=== PATIENT | female | born 1970 | race Caucasian/White ===

== ENCOUNTER → 2017-12-12 17:26 | Outpatient (CLI) | payer OTHER, SELFPAY ==
--- NOTE | 2017-12-12 17:31 | RAD_ITS ---
STUDY: X-RAY CHEST REASON FOR EXAM: Female, 47 years old. Persistent cough. TECHNIQUE: PA and lateral chest. COMPARISON: None. FINDINGS: The lungs are clear and expanded. There is no demonstrated pleural abnormality. Normal size heart. Normal mediastinum and priyanka. Normal visualized pulmonary arteries. Normal visualized aortic arch and descending thoracic aorta. Normal visualized thoracic spine. Normal visualized ribs, clavicles, and shoulders. There is no demonstrated abnormality of the visualized soft tissue structures of the upper abdomen. RAD/Chest PA and Lateral IMPRESSION: Normal x-ray examination of the chest. Electronically Signed: Marcelo Chavez MD at 7:43 EST , Service support ,
== END ==
PROVIDERS: Family Provider Family Medicine; PCP Family Medicine; Visit Provider Family Medicine
DX: R05 Cough (principal); R06.00 Dyspnea, unspecified
CPT/HCPCS: 71046

== ENCOUNTER → 2018-05-31 07:55 | Outpatient (CLI) | payer OTHER, SELFPAY ==
[2018-05-31 12:48] LABS: Absolute Lymphocyte Count 2.03 X10^3/ul (0.83-4.51); Absolute Neutrophil Count 3.5 X10^3/uL (2.0-7.7); Basophil# 0.02 X10^3/uL; Basophil% 0.3 % (0-1); Eosinophil# 0.13 X10^3/uL; Eosinophils% 2.1 % (0-5); Hematocrit 41.6 % (37-47); Lymphocyte # 2.03 X10^3/ul (4.0); Lymphocyte % 33.3 % (19-41); Mean Corp Hgb Conc 31.3 g/gl (32-36); Mean Corpuscular Hgb 28.3 pg (27.0-32.0); Mean Corpuscular Volume 90.6 fL (81-99); Mean Platelet Vol. 10.8 fl (6.2-12.0); Monocyte# 0.44 X10^3/uL; Monocyte% 7.2 % (0-10); Neutrophil # 3.47 X10^3/uL (2.7-7.7); Neutrophil % 56.9 % (47-70); Platelet Count 250 K/mm3 (150-450); RBC Distribution Width CV 15.1 % (11.6-14.6); Red Blood Count 4.59 M/mm3 (4.2-5.4); White Blood Count 6.1 K/mm3 (4.4-11.0)
[2018-05-31 12:55] LABS: Vitamin D,25 Hydroxy 21.5 ng/mL (29.95-100.01)
[2018-05-31 12:57] LABS: AST(SGOT) 16 U/L (15-37); Alanine Aminotransfer ALT/SGPT 27 U/L (13-56); Albumin, Serum 3.8 g/dL (3.2-5.0); Alkaline Phosphatase 85 U/L (45-117); Anion Gap 9 (5-15); BUN 15 mg/dL (7-18); BUN/Creat Ratio 17.6 RATIO (10-20); Calcium,Total 8.5 mg/dL (8.5-10.1); Chloride 111 mmol/L (98-107); Cholesterol 175 mg/dL (200); Creatinine, Serum 0.85 mg/dL (0.55-1.02); EST Glomerular Filtration Rate 76 mL/min (>60); Est Glom Filt Rate - Afr Amer 91 mL/min (>60); Globulin 3.7 g/dL (2.2-4.2); Glucose 84 mg/dL (74-106); High Density Lipoprotein 41 mg/dL; Potassium 4.1 mmol/L (3.5-5.1); Protein, Total 7.5 g/dL (6.4-8.2); Sodium Level 143 mmol/L (136-145); T4 Free Direct 0.56 ng/dL (0.76-1.46); Thyroid Stim Hormone (TSH) 3.86 uIU/mL (0.358-3.74); Triglycerides 140 mg/dL; Very Low Density Lipoprotein 28 mg/dL (5-40)
[2018-05-31 12:59] LABS: POSITIVE COUNT NO; POSITIVE DIFFERENTIAL NO; POSITIVE MORPHOLOGY NO
== END ==
PROVIDERS: Family Provider Family Medicine; PCP Family Medicine; Visit Provider Family Medicine
DX: E03.9 Hypothyroidism, unspecified (principal); E78.5 Hyperlipidemia, unspecified; R53.83 Other fatigue; E87.6 Hypokalemia; E55.9 Vitamin D deficiency, unspecified
CPT/HCPCS: 36415; 80053; 80061; 82306; 84439; 84443; 84481; 85025

== ENCOUNTER → 2018-08-21 08:10 | Outpatient (CLI) | payer OTHER, SELFPAY ==
[2018-08-21 12:13] LABS: T3 Total - Triiodothyronine 2.43 ng/mL (0.6-1.81)
[2018-08-21 12:17] LABS: T4 Free Direct 0.69 ng/dL (0.76-1.46); Thyroid Stim Hormone (TSH) 1.19 uIU/mL (0.358-3.74)
== END ==
PROVIDERS: Family Provider Family Medicine; PCP Family Medicine; Visit Provider Family Medicine
DX: E03.9 Hypothyroidism, unspecified (principal); E55.9 Vitamin D deficiency, unspecified
CPT/HCPCS: 36415; 82306; 84439; 84443; 84480

== ENCOUNTER → 2019-01-29 10:48 | Outpatient (CLI) | payer OTHER, SELFPAY ==
[2019-01-29 12:54] LABS: T3 Total - Triiodothyronine 2.08 ng/mL (0.6-1.81); Vitamin D,25 Hydroxy 76.9 ng/mL (29.95-100.01)
[2019-01-29 12:55] LABS: T4 Free Direct 0.77 ng/dL (0.76-1.46); Thyroid Stim Hormone (TSH) 0.62 uIU/mL (0.358-3.74)
== END ==
PROVIDERS: Family Provider Family Medicine; PCP Family Medicine; Visit Provider Family Medicine
DX: E03.9 Hypothyroidism, unspecified (principal); E55.9 Vitamin D deficiency, unspecified
CPT/HCPCS: 36415; 82306; 84439; 84443; 84480

== ENCOUNTER → 2019-07-03 09:05 | Outpatient (CLI) | payer OTHER, SELFPAY ==
[2019-07-03 12:43] LABS: T3 Total - Triiodothyronine 2.26 ng/mL (0.6-1.81); Vitamin D,25 Hydroxy 42.1 ng/mL (29.95-100.01)
[2019-07-03 12:46] LABS: T4 Free Direct 0.62 ng/dL (0.76-1.46)
== END ==
LOC: LAB.FUTURE 07-04 15:51 → BFHLAB 12-06 13:54
PROVIDERS: Family Provider Family Medicine; PCP Family Medicine; Visit Provider Family Medicine
DX: E03.9 Hypothyroidism, unspecified (principal); E55.9 Vitamin D deficiency, unspecified
CPT/HCPCS: 36415; 82306; 84439; 84443; 84480

== ENCOUNTER → 2019-08-22 16:00 | Outpatient (CLI) | payer BC, SELFPAY ==
[2019-08-22 17:57] LABS: Free T3 3.4 pg/mL (2.18-3.98); Thyroid Stim Hormone (TSH) 3.12 uIU/mL (0.358-3.74)
== END ==
LOC: LAB.FUTURE 16:03 → BFHLAB 12-06 13:53
PROVIDERS: Family Provider Family Medicine; PCP Family Medicine; Visit Provider Family Medicine
DX: E03.9 Hypothyroidism, unspecified (principal); N39.0 Urinary tract infection, site not specified
CPT/HCPCS: 36415; 84439; 84443; 84481; 87086; 87088; 87186

== ENCOUNTER → 2019-11-12 12:45 | Outpatient (CLI) | payer BC, SELFPAY ==
[2019-11-12 12:51] LABS: Bacteria 0 SEEN /hpf (None Seen); Mucous, Urine 0 SEEN /hpf (<or=2+); Red Blood Cells-Urine 0 SEEN /hpf (0-5); Squamous Epithelial Cells - UA 0 SEEN /hpf (5-10); White Blood Cells 0 SEEN /hpf (0-5)
[2019-11-12 16:22] LABS: Color, Urine Yellow (Yellow); Glucose, Dipstick Normal (Normal); Ketone-Dipstick Negative (Negative); Leukocyte Esterase-Dipstick Negative /ul (Negative); Nitrite-Dipstick Negative (Negative); Occult Blood-Urine 10 /ul (Negative); Protein-Dipstick Negative (Negative); Specific Gravity, Urine 1.005 (1.002-1.030); Urine Bilirubin Dipstick Negative (Negative); Urine Clarity Clear (Clear); Urine Urobilinogen Normal (Normal)
== END ==
LOC: BFHLAB 12:46 → LABSPEC 12:47
PROVIDERS: Family Provider Family Medicine; PCP Family Medicine; Referring Provider Family Medicine; Visit Provider Family Medicine
DX: R31.9 Hematuria, unspecified (principal)
CPT/HCPCS: 81001; 87086; 87088

== ENCOUNTER 2020-01-02 07:20 | Day surgery (SDC) | payer BC, SELFPAY ==
--- NOTE | 2019-12-14 03:51 | HP_ITS ---
Intake Vital Signs 12/14/19 Height 5 ft 5.6 in 12/14/19 Weight: 193 lb 12/14/19 BMI 31.5 12/14/19 BP 116/73 12/14/19 Blood Pressure Location Rt brachial 12/14/19 Position Sitting 12/14/19 Respiration 18 12/14/19 Pulse 80 12/14/19 Pulse Source Monitor 12/14/19 Temp 97.9 F 12/14/19 Temp Source Oral 12/14/19 Pulse Oximetry (%) 100 12/14/19 Oxygen Delivery Method room air Intake Visit Reasons: abd pain, needs cscope Chief Complaint: abdominal pain/bloating Public Health Registrar Required: No Is patient in pain?: No Allergies No Known Allergies Allergy (Unverified 12/14/19 15:31) Medications alprazolam 0.5 mg tablet 0.5 mg PO TID PRN 12/14/19 [History Confirmed 12/14/19] cholecalciferol (vitamin D3) 1,250 mcg (50,000 unit) capsule 50,000 unit PO .[id number] cap 12/14/19 [History Confirmed 12/14/19] diltiazem HCl 180 mg capsule,extended release 24 hr 180 mg PO DAILY 12/14/19 [History Confirmed 12/14/19] multivitamin 1 cap PO DAILY 12/14/19 [History] sertraline 100 mg tablet 100 mg PO DAILY 12/14/19 [History Confirmed 12/14/19] thyroid (pork) 60 mg tablet 90 mg PO DAILY tab 12/14/19 [History Confirmed 12/14/19] [facility] Medical History (Updated 12/14/19 @ 15:23 by Airam Valenzuela) Abdominal pain (Acute) Acid reflux (Acute) Arthritis (Acute) Bloating (Acute) Constipation (Acute) Depression with anxiety (Acute) Diarrhea (Acute) Hemorrhoids (Acute) History of back problems (Acute) Thyroid disease (Acute) Hypertension (Chronic) Surgical History (Updated 12/14/19 @ 15:26 by Airam Valenzuela) History of laparoscopic cholecystectomy (Acute) History of tubal ligation (Acute) Family History (Updated 12/14/19 @ 15:29 by Airam Valenzuela) Grandmother Arthritis Colon cancer Grandmother CVA (cerebral vascular accident) Mother Arthritis Cancer Hypertension Father Hypertension Uncle CVA (cerebral vascular accident) Social History (Updated 12/14/19 @ 15:51 by Sheba Harmon MD) Smoking Status: Current every day smoker alcohol intake: never substance use type: does not use HPI HPI HPI: CLAU DONALD, is a 49 F who presents to the office today for HPI HPI Surgical H&P: Yes HPI: CLAU DONALD, is a 49 F who presents to the office today for constipation/bloating. Patient states she has had issues with constipation/diarrhea cycle her entire life. For the last couple weeks the constipation bloating has been worse. Patient did states she notices a bulge from her vagina did see her [employer]NA[employer] who stated that she did have a week and vaginal wall with some prolapse of the urethra as well as the rectum per patient her imaging was normal. Patient stated a couple weeks ago she may have had hemorrhoid she did use preparation cream for about a week and did go away unsure if this was actually in the rectal area or vaginal. Patient states she has bowel movements daily but is unsure if she completely empties recently her bowel movements have been harder. Patient was told by her PCP to start taking some MiraLAX she has not quite started yet. Patient's maternal grandmother was diagnosed with colon cancer in her 40s. Patient did have a previous colonoscopy in her 20s due to abdominal pain patient states she did have some polyps at that time but they were benign. Patient states she does eat a lot of salads and fruits and vegetables but unsure exactly how much fiber she gets daily. ROS General General: No weight change, appetite, fatigue, colon cancer, breast cancer or weakness HEENT HEENT: No difficulty swallowing, eye injury, eye surgery, swollen glands or hoarseness Endo Endocrine: Yes thyroid disease; no diabetes mellitus, thyroid cancer, Hair loss, heat intolerance or cold intolerance Skin Skin: No rash or changing moles Breast Breast: No left breast lump, right breast lump, nipple discharge, breast pain, abnormal mammogram, abnormal US or breast enlargement Musc Musculoskeletal: Yes back problems and arthritis; no rheumatoid arthritis, gout or joint pain Cardio Cardiovascular: Yes high blood pressure; no murmur, pacemaker, heart disease, atrial fibrillation, heart attack, heart stent, palpitations, shortness of breat with exertion or chest pain Psych Psychiatric: Yes depression and anxiety; no hearing voices Resp Respiratory: No shortness of breath, No sleep apnea, No cough, No COPD, No asthma, No emphysema, No wheezing Gastro Gastrointestinal: Yes abdominal pain, No nausea or vomiting, No diarrhea, Yes constipation, No blood in stool, Yes acid reflux, Yes hemorrhoids, No ulcers, No gallbladder problem, No black,tarry stools Joseph Hematologic: No blood thinners, No blood disorders, No bleeding, No anemia, No blood clots Neuro Neurologic: No system reviewed and no additional complaints, except as docu, No as per HPI, No abnormal walking, No abnormal hearing, No abnormal movements, No abnormal speech, No behavioral changes, No burning sensations, No confusion, No seizure-like activity, No unsteadiness, No dizziness, No localized weakness, No frequent falls, No headache(s), No lack of coordination, No loss of vision, No memory loss, No numbness, No other visual disturbances, No radiating pain, No restless legs, No sensory deficit, No fainting, No tingling, No tremor(s), No weakness, No other Exam Const General: cooperative, comfortable, no acute distress Chest Breast Palpation: No nipple discharge Resp Effort & Inspection: normal respiratory effort Cardio Rate: regular rate Heart Sounds: no murmurs GI Inspection: non-distended Palpation: soft, no guarding, nontender Other: SASHA: No obvious external hemorrhoids even with Valsalva, small internal hemorrhoids anteriorly, no gross blood or masses noted. Assessment & Plan Problems 1. Constipation K59.00 2. Bloating symptom R14.0 Plan Will have patient track her fiber intake, goal of 25 g of fiber daily instructed patient not to advance fiber too quickly depending what she normally gets. Did give her sheet of high-fiber foods. I have discussed the above with the patient. I have offered the patient colonoscopy for evaluation. I have explained the risks/benefits of the procedure and described the procedure. I have discussed the risks with the patient, including but not limited to: infection, bleeding, perforation of the GI tract requiring emergency surgery, inability to complete the procedure, injury to any internal organs, complications of anesthesia, etc. - the patient understands and agrees to proceed. I have answered all the patient's questions to the patient's satisfaction and the patient has no further questions. The patient has been given instructions for the colon cleansing preparation. One day of cleareduardo MiraLAX to collect split prep Sheba Harmon M.D. Pager: [phone] [facility] [address] [place] [address], [facility], [address] [place] [address] Office: [phone] Plan Detail Follow Up We will schedule colonoscopy patient prefers January 02 Coding Level of Care Code Off vis,new,level 3 Diagnoses Constipation K59.00 Bloating symptom R14.0 12/14/19 1551 <Electronically signed by Sheba Mera am, MD> Date _ Sheba Harmon MD I have examined the patient the following changes are noted: Patient states she her constipation resolved improved after getting low but more fiber has not quite made up to the 25 g daily as she is taking it slowly.
[2019-12-14 15:29] VITALS: BMI 31.5
[2020-01-02 07:36] VITALS: BP 131/83; PULSE 108; RESP 16; TEMP 36.3; O2SAT 100; BMI 31.6
[2020-01-02] MEDS: Lactated Ringers 1,000 ML 100 ML IV (07:51)
[2020-01-02 08:59] VITALS: BP 131/83; BP 99/60; PULSE 87; RESP 18; TEMP 36.7; O2SAT 97
--- NOTE | 2020-01-02 09:01 | OP.CCLET_ITS ---
01/02/2020 Huma Alves [address] [place] [address] Re : Colonoscopy procedure for Xiomara Smiley Dear Dr. Alves This procedure was performed on Thursday, January 02, 2020. My impressions and recommendations are as follows: Impressions : - Hemorrhoids found on perianal exam. - Diverticulosis in the sigmoid colon and in the descending colon. - Internal hemorrhoids. - The examination was otherwise normal. - No specimens collected. Recommendations : - Discharge patient to home. - High fiber diet. - Continue present medications. - Repeat colonoscopy in 10 years for screening purposes. My findings are described in the full procedure note, which is enclosed. If I can be of further assistance, please feel free to contact me at Doctor phone number(s): , Work: . Sincerely, MD Sheba Brown MD 01/02/2020 9:00:50 AM This report has been signed electronically.
--- NOTE | 2020-01-02 09:01 | OP.COLON_ITS ---
Patient Name: Xiomara Smiley Procedure Date: 01/02/2020 8:19 AM Date of : 1970 Age: 49 Procedure: Colonoscopy Indications: Constipation Providers: Sheba Harmon MD Referring MD: Huma Alves Medicines: Monitored Anesthesia Care Patient Profile: This is a 49 year old female. Last Colonoscopy: more than 10 years ago. Complications: No immediate complications. Procedure: Pre-Anesthesia Assessment: - Prior to the procedure, a History and Physical was performed, and patient medications and allergies were reviewed. The patient's tolerance of previous anesthesia was also reviewed. The risks and benefits of the procedure and the sedation options and risks were discussed with the patient. All questions were answered, and informed consent was obtained. Prior Anticoagulants: The patient has taken no previous anticoagulant or antiplatelet agents. After reviewing the risks and benefits, the patient was deemed in satisfactory condition to undergo the procedure. After I obtained informed consent, the scope was passed under direct vision. Throughout the procedure, the patient's blood pressure, pulse, and oxygen saturations were monitored continuously. The pediatric colonoscope was introduced through the anus and advanced to the cecum, identified by appendiceal orifice and ileocecal valve. The colonoscopy was performed without difficulty. The patient tolerated the procedure well. Scope In: 8:35:25 AM Scope Withdrawal Time 0 hours 8 minutes 37 seconds Scope Out: 8:52:07 AM Total Procedure Duration Time 0 hours 16 minutes 42 seconds Findings: Hemorrhoids were found on perianal exam. Many small-mouthed diverticula were found in the sigmoid colon and descending colon. Internal hemorrhoids were found. The hemorrhoids were Grade I (internal hemorrhoids that do not prolapse). The exam was otherwise without abnormality. Impression: - Hemorrhoids found on perianal exam. - Diverticulosis in the sigmoid colon and in the descending colon. - Internal hemorrhoids. - The examination was otherwise normal. - No specimens collected. Recommendation: - Discharge patient to home. - High fiber diet. - Continue present medications. - Repeat colonoscopy in 10 years for screening purposes. Procedure Code(s): --- Professional --- 03048, Colonoscopy, flexible; diagnostic, including collection of specimen(s) by brushing or washing, when performed (separate procedure) Diagnosis Code(s): --- Professional --- K64.0, First degree hemorrhoids K59.00, Constipation, unspecified K57.30, Diverticulosis of large intestine without perforation or abscess without bleeding CPT copyright 2017 [employer]. All rights reserved. The codes documented in this report are preliminary and upon gre instructor review may be revised to meet current compliance requirements. MD Sheba Brown MD 01/02/2020 9:00:50 AM This report has been signed electronically. Number of Addenda: 0 Note Initiated On: 01/02/2020 8:19 AM
[2020-01-02 09:05] VITALS: BP 102/63; BP 131/83; PULSE 85; RESP 17; O2SAT 98
[2020-01-02 09:10] VITALS: BP 106/79; BP 131/83; PULSE 81; RESP 18; O2SAT 100
[2020-01-02 09:16] VITALS: BP 112/71; BP 131/83; PULSE 76; RESP 17; TEMP 36.6; O2SAT 100
[2020-01-02 09:35] VITALS: BP 131/83
== END 2020-01-02 09:39 | disposition home or self-care (01) ==
LOC: EN 07:21 → AC 07:22
PROVIDERS: PCP Family Medicine; Referring Provider Family Medicine; Visit Provider Surgery
PROC: 0DJD8ZZ Inspection of Lower Intestinal Tract, Via Natural or Artificial Opening Endoscopic (ICD-10-PCS; CPT 45378; principal; 2020-01-02 08:25)
DX: K64.0 First degree hemorrhoids (principal); K57.30 Diverticulosis of large intestine without perforation or abscess without bleeding; Z80.0 Family history of malignant neoplasm of digestive organs; I10 Essential (primary) hypertension; K21.9 Gastro-esophageal reflux disease without esophagitis; F41.8 Other specified anxiety disorders; E06.9 Thyroiditis, unspecified; M19.90 Unspecified osteoarthritis, unspecified site; Z86.2 Personal history of diseases of the blood and blood-forming organs and certain disorders involving the immune mechanism; Z87.19 Personal history of other diseases of the digestive system; Z90.49 Acquired absence of other specified parts of digestive tract; Z79.899 Other long term (current) drug therapy; F17.200 Nicotine dependence, unspecified, uncomplicated
CPT/HCPCS: 45378; J7120; J2405

== ENCOUNTER 2020-04-29 15:22 | Emergency (ER) | payer BC, SELFPAY ==
[2020-04-29 15:23] VITALS: BP 144/77; PULSE 131; RESP 18; TEMP 36.3; O2SAT 99; BMI 33.3
[2020-04-29] MEDS: Ibuprofen 400 MG Tablet 800 MG PO (16:02)
--- NOTE | 2020-04-29 16:10 | RAD_ITS ---
STUDY: X-RAY - LEFT FEMUR REASON FOR STUDY: Female, 50 years old. Not specified TECHNIQUE: 2 view(s) of the femur. COMPARISON: None. FINDINGS: Normal visualized femur. Normal visualized soft tissue structure. RAD/Femur Min 2 Views IMPRESSION: Normal x-ray examination of the femur. Electronically Signed: Michele Isaacs, at 16:30 EDT Tel , Service support ,
--- NOTE | 2020-04-29 16:35 | ED.DCSUM_ITS ---
- ER Visit Summary Date of Service: 04/29/20 Chief Complaint: Left thigh pain History of Present Illness: The patient is a [address] Alicia. She reports that she was stepping on a ladder to get into the pool when the ladder fell and popped up and hit her in the left thigh. She has a sharp pain is 10 of 10 in severity at worst and 7-10 currently. Is worsened by walking walking relieved by rest. She denies any other injuries or complaints. Physical Examination: Vitals: Stable. Afebrile. General: Well-nourished and well-developed. Head: Normocephalic atraumatic. Neck: Supple, no lymphadenopathy. No JVD. Nontender. Cardiovascular: Regular rate and rhythm. No murmurs. Respiratory: No respiratory distress. Clear to auscultation bilaterally. Abdominal: Soft, nontender, nondistended, normal bowel sounds. No guarding, rebound, or peritoneal signs. Back: Nontender. Extremities: Moderate tenderness palpation to the anterior surface of her left thigh. Good range of motion of the hip and the knee without difficulty. She is neuro vas intact distal to this, no edema. Skin: Normal color, no rash. Neurologic: Alert and oriented ?3. Cranial nerves II through XII are intact. Normal strength and sensation. Psych: Normal affect. Test Results: Clinical Impression(s) from Imaging Studies Femur X-Ray 04/29/20 16:10 IMPRESSION: Normal x-ray examination of the femur. Electronically Signed: Michele Mariecruz, at 16:30 EDT Tel , Service support , Emergency Department Course and Treatment: Patient was treated with ibuprofen. She is resting comfortably. Treatment Plan: Patient be discharged with symptomatic care. Ice the area. Use Tylenol and/or ibuprofen as needed for pain. Follow-up with her primary care physician 1 week if not improving. Return to the emergency department for any worsening symptoms. Disposition: To home in improved and stable condition. Impression: 1. Contusion left thigh. This note was generated with [employer] software. It may contain incorrect words, spelling, and punctuation that were not noted in review of the chart prior to signing ED Disposition - Plan for ED Patient: Disposition: Home or Assisted Living Instructions: ED EXTREMITY CONTUSION Lower Referrals: Huma Alves DO [Primary Care Provider] - 1 Week if not improving
[2020-04-29 17:09] VITALS: BP 149/62; PULSE 78; RESP 16; O2SAT 95
== END 2020-04-29 17:10 | disposition home or self-care (01) ==
LOC: ED 15:57
PROVIDERS: Emergency Provider Emergency Medicine; PCP Family Medicine
DX: S70.12XA Contusion of left thigh, initial encounter (principal); W18.09XA Striking against other object with subsequent fall, initial encounter; Y93.11 Activity, swimming; Y92.89 Other specified places as the place of occurrence of the external cause; Y99.9 Unspecified external cause status; I10 Essential (primary) hypertension; F17.210 Nicotine dependence, cigarettes, uncomplicated
CPT/HCPCS: 73552; 99283

== ENCOUNTER → 2020-06-02 09:18 | Outpatient (CLI) | payer BC, SELFPAY ==
[2020-06-02 09:22] LABS: Mucous, Urine 0 SEEN /hpf (<or=2+); White Blood Cells 0 SEEN /hpf (0-5)
[2020-06-02 12:27] LABS: Color, Urine Yellow (Yellow); Glucose, Dipstick Normal (Normal); Ketone-Dipstick Negative (Negative); Leukocyte Esterase-Dipstick Negative /ul (Negative); Nitrite-Dipstick Negative (Negative); Occult Blood-Urine 10 /ul (Negative); Protein-Dipstick Negative (Negative); Urine Bilirubin Dipstick Negative (Negative); Urine Clarity Sl. Cloudy (Clear); Urine Urobilinogen Normal (Normal)
[2020-06-02 12:33] LABS: Bacteria 1+ /hpf (None Seen); Red Blood Cells-Urine 0-5 SEEN /hpf (0-5); Squamous Epithelial Cells - UA 0-5 SEEN /hpf (5-10)
[2020-06-02 12:34] LABS: AST(SGOT) 18 U/L (15-37); Alanine Aminotransfer ALT/SGPT 29 U/L (13-56); Albumin, Serum 3.9 g/dL (3.2-5.0); Alkaline Phosphatase 93 U/L (45-117); Anion Gap 6 (5-15); BUN 10 mg/dL (7-18); BUN/Creat Ratio 12.2 RATIO (10-20); Calcium,Total 8.7 mg/dL (8.5-10.1); Chloride 106 mmol/L (98-107); Cholesterol 185 mg/dL (200); Creatinine, Serum 0.82 mg/dL (0.55-1.02); EST Glomerular Filtration Rate 78 mL/min (>60); Est Glom Filt Rate - Afr Amer 95 mL/min (>60); Free T3 2.6 pg/mL (2.18-3.98); Globulin 3.8 g/dL (2.2-4.2); Glucose 87 mg/dL (74-106); High Density Lipoprotein 41 mg/dL; Protein, Total 7.7 g/dL (6.4-8.2); Sodium Level 136 mmol/L (136-145); T4 Free Direct 0.68 ng/dL (0.76-1.46); Thyroid Stim Hormone (TSH) 7.41 uIU/mL (0.358-3.74); Triglycerides 151 mg/dL; Very Low Density Lipoprotein 30 mg/dL (5-40)
== END ==
LOC: LAB.FUTURE 09:18 → BFHLAB 08-26 14:46
PROVIDERS: Family Provider Family Medicine; PCP Family Medicine; Visit Provider Family Medicine
DX: E03.9 Hypothyroidism, unspecified (principal); R31.9 Hematuria, unspecified; E78.5 Hyperlipidemia, unspecified; I10 Essential (primary) hypertension
CPT/HCPCS: 36415; 80053; 80061; 81001; 84439; 84443; 84481; 87086; 87088

== ENCOUNTER → 2020-08-29 15:41 | Outpatient (CLI) | payer BC, SELFPAY ==
[2020-08-29 18:11] LABS: Free T3 3.7 pg/mL (2.18-3.98); T4 Free Direct 0.82 ng/dL (0.76-1.46); Thyroid Stim Hormone (TSH) 0.57 uIU/mL (0.358-3.74)
== END ==
PROVIDERS: PCP Family Medicine; Visit Provider Family Medicine
DX: E03.9 Hypothyroidism, unspecified (principal)
CPT/HCPCS: 36415; 84439; 84443; 84481

== ENCOUNTER 2021-01-29 15:16 | Outpatient (RCR) | payer BC, SELFPAY ==
[2021-01-29] MEDS: COVID-19 VACC, MRNA(PFIZER)/PF 30 MCG/0.3 ML SYRINGE IM (13:10)
[2021-02-19] MEDS: COVID-19 VACC, MRNA(PFIZER)/PF 30 MCG/0.3 ML SYRINGE IM (12:45)
== END 2021-01-29 23:59 ==
LOC: IMMUN 15:16
PROVIDERS: PCP Family Medicine; Visit Provider Family Medicine
DX: Z23 Encounter for immunization (principal)
CPT/HCPCS: 0001A; 0002A; 91300

== ENCOUNTER → 2021-07-17 16:12 | Outpatient (CLI) | payer OTHER, SELFPAY | PROVIDERS: PCP Family Medicine; Visit Provider Family Medicine | DX: Z20.828 Contact with and (suspected) exposure to other viral communicable diseases (principal) | CPT/HCPCS: 87635; U0005; U0003 ==

== ENCOUNTER → 2021-09-08 | Outpatient (CLI) | payer OTHER, SELFPAY ==
[2021-09-12 21:12] LABS: HPV APTIMA, High Risk Negative (Negative)
== END | disposition home or self-care (01) ==
PROVIDERS: PCP Family Medicine; Referring Provider Obstetrics & Gynecology; Visit Provider Obstetrics & Gynecology
DX: Z01.419 Encounter for gynecological examination (general) (routine) without abnormal findings (principal)
CPT/HCPCS: 87624; 88175; G0145

== ENCOUNTER → 2022-03-29 | Outpatient (CLI) | payer OTHER, SELFPAY ==
--- NOTE | 2022-03-29 16:10 | BI_ITS ---
MAMMOGRAPHY - BILATERAL SCREENING REASON FOR EXAM: Female, 52 years old. Routine annual screening examination. PERTINENT HISTORY: Non-contributory. TECHNIQUE: Digital bilateral breast moose (3D mammographic acquisition) in the CC and MLO projections. 2-D mediolateral oblique (MLO) and craniocaudad (CC) views of both breasts were obtained. CAD: Full Field Digital Mammography with Computer Added Detection was performed. COMPARISON: Comparison is made with prior outside examination dated 12/22/2020. FINDINGS: Breast Composition: There are scattered areas of fibroglandular density. There are no dominant masses or suspicious calcifications. Stable benign-appearing bilateral axillary nodes. No other significant abnormalities are identified. There has been no significant change since the prior study. BI/SCRN MAMM (CAD)W/MOOSE BILAT IMPRESSION: Stable bilateral screening mammogram. Yearly follow-up mammogram recommended. (A) ASSESSMENT CATEGORY: BIRADS Category 2: Benign. A letter regarding these results will be sent to the patient by the facility within 30 days. Approximately 10% of breast cancers are not detected by mammography. A normal mammogram should not delay biopsy of a clinically suspicious abnormality. [id number] Electronically Signed: David Patton MD at 8:27 EDT ,
== END | disposition home or self-care (01) ==
LOC: OPBI 16:08
PROVIDERS: PCP Family Medicine; Visit Provider Family Medicine
DX: Z12.31 Encounter for screening mammogram for malignant neoplasm of breast (principal)
CPT/HCPCS: 77063; 77067

== ENCOUNTER → 2022-08-24 | Outpatient (CLI) | payer OTHER, SELFPAY | END | disposition home or self-care (01) | LOC: SL 11:26 | PROVIDERS: PCP Family Medicine; Referring Provider Family Medicine; Visit Provider Family Medicine | DX: G47.30 Sleep apnea, unspecified (principal); I10 Essential (primary) hypertension; R35.1 Nocturia | CPT/HCPCS: 95806 ==

== ENCOUNTER → 2022-09-30 | Outpatient (CLI) | payer OTHER, SELFPAY | END | disposition home or self-care (01) | LOC: SL 08:47 | PROVIDERS: PCP Family Medicine; Visit Provider Nurse Practitioner Acute Care | DX: Z46.89 Encounter for fitting and adjustment of other specified devices (principal) ==

== ENCOUNTER → 2022-10-14 | Outpatient (CLI) | payer OTHER, SELFPAY | END | disposition home or self-care (01) | LOC: SL 08:15 | PROVIDERS: PCP Family Medicine; Visit Provider Nurse Practitioner Acute Care | DX: Z00.00 Encounter for general adult medical examination without abnormal findings (principal) ==

== ENCOUNTER 2022-12-30 22:57 | Emergency (ER) | payer OTHER, SELFPAY ==
[2022-12-30 22:58] VITALS: BP 127/74; PULSE 106; RESP 16; TEMP 36.2; O2SAT 100; BMI 33.3
[2022-12-30 23:13] LABS: Mucous, Urine 0 SEEN /hpf (<or=2+)
[2022-12-30 23:28] LABS: Color, Urine Yellow (Yellow); Glucose, Dipstick Normal (Normal); Ketone-Dipstick 5 mg/dl (Negative); Leukocyte Esterase-Dipstick 500 /ul (Negative); Nitrite-Dipstick Positive (Negative); Occult Blood-Urine 250 /ul (Negative); Protein-Dipstick 100 mg/dl (Negative); Specific Gravity, Urine 1.025 (1.002-1.030); Urine Bilirubin Dipstick Negative (Negative); Urine Clarity Sl. Cloudy (Clear); Urine Urobilinogen 1 mg/dl (Normal)
[2022-12-31 00:02] LABS: Bacteria 1+ /hpf (None Seen); Red Blood Cells-Urine 50-100 SEEN /hpf (0-5); Squamous Epithelial Cells - UA 0-5 SEEN /hpf (5-10); White Blood Cells >100 SEEN /hpf (0-5)
[2022-12-31] MEDS: Phenazopyridine 95 MG Tablet 190 MG PO (01:01)
[2022-12-31] MEDS: Cephalexin 250 MG Capsule 500 MG PO (01:01)
--- NOTE | 2022-12-31 01:51 | EDS_ITS ---
HPI History of Present Illness Chief Complaint: Complaint Narrative Narrative: Patient is a 52-year-old female with past medical history of smoking and obstructive sleep apnea. She states she went to see her waist pleater today for her yearly exam and reportedly she has a mild bladder prolapse but otherwise normal. She states this evening she urinated and it was mildly painful/uncomfortable and when she wiped she noticed some blood. She states that she does not take blood thinner or have history of bleeding disorder. She reports that since that time she feels he has to urinate roughly every 5 minutes and with these new symptoms she is concern for underlying infection and comes in for evaluation [facility] Medical History Abdominal pain Acid reflux Arthritis Bloating Constipation Depression with anxiety Diarrhea Hemorrhoids History of back problems Hypertension Thyroid disease Uterine polyp Home Medications alprazolam 0.5 mg tablet (Xanax) 0.5 mg PO TID PRN anxiety 12/14/19 [History Last Taken 01/02/20] cholecalciferol (vitamin D3) 1,250 mcg (50,000 unit) capsule 50,000 unit PO .[id number] 12/14/19 [History Last Taken Unknown] omeprazole 40 mg capsule,delayed release 40 mg PO PRN PRN Indigestion 12/31/19 [History Last Taken 01/02/20] diltiazem HCl 180 mg capsule,extended release 24 hr 360 mg PO DAILY 09/08/22 [History Last Taken Unknown] fluoxetine 40 mg capsule (Prozac) 40 mg PO DAILY 09/08/22 [History Last Taken Unknown] thyroid (pork) 60 mg tablet ([place] Thyroid) 125 mg PO DAILY 09/08/22 [History Last Taken Unknown] topiramate 50 mg tablet (Topamax) 50 mg PO DAILY 12/23/22 [History Last Taken Unknown] cephalexin 500 mg capsule 500 mg PO TID 7 days #21 caps 12/31/22 [Rx Last Taken Unknown] phenazopyridine 200 mg tablet (Pyridium) 200 mg PO TID PRN pain 3 days #9 tabs 12/31/22 [Rx Last Taken Unknown] Allergy/AdvReac Type Severity Reaction Status Date / Time No Known Allergies Allergy Verified 12/30/22 10:56 Family History Grandmother Arthritis Colon cancer Grandmother CVA (cerebral vascular accident) Mother Arthritis Cancer Hypertension Father Hypertension Uncle CVA (cerebral vascular accident) Surgical History History of laparoscopic cholecystectomy History of tubal ligation Social History Smoking Status: Current every day smoker tobacco type: cigarettes alcohol intake: never substance use type: does not use caffeine: Yes what type of physical activity do you participate in: none seatbelt use: always do you feel safe at home: Yes additional social history: [employer] at [employer] Patient works at [employer] ED Constitutional Constitutional ED: Denies chills or fever(s) ENT ENT ED: Denies sore throat Cardiovascular Cardiovascular: Denies chest pain Respiratory/Chest Respiratory/Chest: Denies cough or dyspnea Gastrointestinal Gastrointestinal: Denies abdominal pain, diarrhea, nausea or vomiting Genitourinary Genitourinary ED: Reports dysuria, hematuria and urinary frequency Musculoskeletal Musculoskeletal: Denies back pain or myalgias Integumentary Denies rash Neurologic Neurologic: Denies headache(s) Hematologic/Lymphatic Hematologic/Lymphatic: Denies easy bleeding or easy bruising EXAM Physical Exam Const Vital Signs: 12/30/22 22:58 Temperature 97.2 F L Temperature Source Temporal Pulse Rate 106 H Respiratory Rate 16 Blood Pressure 127/74 H Blood Pressure Mean 91 Pulse Ox 100 Positive well nourished and well developed General Appearance ED: well developed Eyes PERRL and EOMs intact bilaterally General Eye ED: Negative for pale conjunctiva Neck supple Resp normal respiratory effort and clear to auscultation bilaterally Cardio regular rate and regular rhythm GI non-distended GI Narrative: Patient has mild pain on palpation in the suprapubic region without voluntary guarding or rigidity Auscultation: normoactive bowel sounds Palpation: soft Narrative: External genitalia is normal. There is no blood or discharge at the vaginal os Back/Spine no CVA tenderness Extremity normal to inspection Neuro oriented x3 and CN's II-XII intact bilaterally Sensorium / Orientation: alert Psych mental status grossly normal Skin no rashes or lesions noted MDM MDM MDM Narrative Medical decision making narrative: Patient presented to the ER with stable vitals and a soft nonsurgical abdomen. She reported sudden onset urinary frequency dysuria and hematuria. She had no flank pain however so my concern for kidney stone was low. Also with her being afebrile and having a soft nonsurgical abdomen I do not feel there is need for work-up other than a urinary test at this time. Urine does show white blood cells with bacteria and red cells consistent with her exam. She is not physical exam findings concerning for urosepsis however and therefore do not feel there is need for blood cultures but just a urine culture and symptomatic treatment. Plan of care was discussed with the patient she is agreeable to it and therefore we discharged at this time Lab Data Labs: Laboratory Results - last 24 hr 12/30/22 23:10 Urine RBC 50-100 SEEN Urine WBC >100 SEEN Ur Squamous Epith Cells 0-5 SEEN Urine Bacteria 1+ Urine Mucus 0 SEEN Discharge Plan Triage Chief Complaint: Complaint ED Provider: Higinio Guardado Dx/Rx/DC Orders Clinical Impression: Acute hemorrhagic cystitis Instructions: UTIs Women Prescriptions: New phenazopyridine [Pyridium] 200 mg tablet 200 mg PO TID PRN (Reason: pain) 3 Days Qty: 9 0RF cephalexin 500 mg capsule 500 mg PO TID 7 Days Qty: 21 0RF No Action alprazolam [Xanax] 0.5 mg tablet 0.5 mg PO TID PRN (Reason: anxiety) cholecalciferol (vitamin D3) 1,250 mcg (50,000 unit) capsule 50,000 unit PO .[id number] thyroid (pork) [[place] Thyroid] 60 mg tablet 125 mg PO DAILY diltiazem HCl 180 mg capsule,extended release 24hr 360 mg PO DAILY fluoxetine [Prozac] 40 mg capsule 40 mg PO DAILY topiramate [Topamax] 50 mg tablet 50 mg PO DAILY omeprazole 40 MG capsule,delayed release(DR/EC) 40 mg PO PRN PRN (Reason: Indigestion) Stand Alone Forms: ED Work / School Excuse Primary Care Provider: Huma Alves Referrals: Huma Alves DO [Primary Care Provider] - Activity Restrictions/Additional Instructions: Your work-up and exam indicate you have hemorrhagic cystitis which is an infection of the bladder causing bleeding. Take the antibiotic as directed to help resolve this and if you have any further concerns or worsening of symptoms please return for repeat evaluation Disposition Disposition: Home, Self Care Discharge Date/Time: 12/31/22 02:24
== END 2022-12-31 02:24 | disposition home or self-care (01) ==
PROVIDERS: Emergency Provider Emergency Medicine; PCP Family Medicine; Visit Provider Emergency Medicine
DX: N30.10 Interstitial cystitis (chronic) without hematuria (principal); I10 Essential (primary) hypertension; F17.210 Nicotine dependence, cigarettes, uncomplicated; G47.33 Obstructive sleep apnea (adult) (pediatric); N81.10 Cystocele, unspecified
CPT/HCPCS: 81001; 87086; 87088; 87186; 99283

== ENCOUNTER → 2023-01-12 | Outpatient (CLI) | payer OTHER, SELFPAY ==
[2023-01-12 12:26] LABS: Absolute Neutrophil Count 6.9 X10^3/uL (2.0-7.7); Basophil# 0.05 X10^3/uL; Basophil% 0.5 % (0-1); Eosinophil# 0.08 X10^3/uL; Eosinophils% 0.8 % (0-5); Hematocrit 39.8 % (37-47); Hemoglobin 12.3 g/dL (12.0-15.0); Lymphocyte % 19.8 % (19-41); Mean Corp Hgb Conc 30.9 g/dL (32-36); Mean Corpuscular Hgb 28.1 pg (27.0-32.0); Mean Corpuscular Volume 91.1 fL (81-99); Mean Platelet Vol. 10.1 fl (6.2-12.0); Monocyte# 0.64 X10^3/uL; Monocyte% 6.7 % (0-10); NRBC Flagged by Analyzer 0 % (0-5); Neutrophil # 6.86 X10^3/uL (2.7-7.7); Neutrophil % 71.6 % (47-70); Platelet Count 339 K/mm3 (150-450); RBC Distribution Width CV 14.8 % (11.6-14.6); RBC Distribution Width SD 49.7 fl (35.1-43.9); Red Blood Count 4.37 M/mm3 (4.2-5.4); White Blood Count 9.6 K/mm3 (4.4-11.0)
[2023-01-12 12:54] LABS: AST(SGOT) 12 U/L (15-37); Alanine Aminotransfer ALT/SGPT 24 U/L (13-56); Albumin, Serum 3.7 g/dL (3.2-5.0); Alkaline Phosphatase 105 U/L (45-117); Anion Gap 7 (5-15); BUN 11 mg/dL (7-18); Calcium,Total 8.5 mg/dL (8.5-10.1); Chloride 107 mmol/L (98-107); Cholesterol 159 mg/dL (200); Creatinine, Serum 0.92 mg/dL (0.55-1.02); EST Glomerular Filtration Rate 68 mL/min (>60); Est Glom Filt Rate - Afr Amer 82 mL/min (>60); Free T3 2.7 pg/mL (2.18-3.98); Globulin 3.8 g/dL (2.2-4.2); Glucose 102 mg/dL (74-106); High Density Lipoprotein 42 mg/dL; Potassium 4.3 mmol/L (3.5-5.1); Protein, Total 7.5 g/dL (6.4-8.2); Sodium Level 137 mmol/L (136-145); T4 Free Direct 1.18 ng/dL (0.76-1.46); Thyroid Stim Hormone (TSH) 0.84 uIU/mL (0.358-3.74); Triglycerides 111 mg/dL; Very Low Density Lipoprotein 22 mg/dL (5-40)
== END | disposition home or self-care (01) ==
LOC: BFHLAB 08:47
PROVIDERS: PCP Family Medicine; Visit Provider Family Medicine
DX: E03.9 Hypothyroidism, unspecified (principal); E78.5 Hyperlipidemia, unspecified; Z51.81 Encounter for therapeutic drug level monitoring
CPT/HCPCS: 80053; 80061; 84439; 84443; 84481; 85025

== ENCOUNTER → 2023-05-03 | Outpatient (CLI) | payer OTHER, SELFPAY ==
--- NOTE | 2023-05-03 09:51 | BI_ITS ---
MAMMOGRAPHY - BILATERAL SCREENING REASON FOR EXAM: Female, 53 years old. Routine annual screening examination. PERTINENT HISTORY: Non-contributory. TECHNIQUE: Digital bilateral breast moose (3D mammographic acquisition) in the CC and MLO projections. 2-D mediolateral oblique (MLO) and craniocaudad (CC) views of both breasts were obtained. CAD: Full Field Digital Mammography with Computer Added Detection was performed. COMPARISON: Mammogram from 03/29/2022, 12/22/2020. FINDINGS: Breast Composition: There are scattered areas of fibroglandular density. There are no dominant masses or suspicious calcifications. Stable small benign-appearing bilateral axillary lymph nodes. No other significant abnormalities are identified. There has been no significant change since the prior study. BI/SCRN MAMM (CAD)W/MOOSE BILAT IMPRESSION: Stable bilateral screening mammogram. Yearly follow-up mammogram recommended. (A) ASSESSMENT CATEGORY: BIRADS Category 2: Benign. A letter regarding these results will be sent to the patient by the facility within 30 days. Approximately 10% of breast cancers are not detected by mammography. A normal mammogram should not delay biopsy of a clinically suspicious abnormality. Electronically Signed: Sukh Hines DO at 15:46 EDT ,
== END | disposition home or self-care (01) ==
LOC: OPBI 09:50
PROVIDERS: PCP Family Medicine; Referring Provider Obstetrics & Gynecology; Visit Provider Obstetrics & Gynecology
DX: Z12.31 Encounter for screening mammogram for malignant neoplasm of breast (principal)
CPT/HCPCS: 77063; 77067

== ENCOUNTER → 2024-01-10 | Outpatient (CLI) | payer OTHER, SELFPAY ==
--- OUTSIDE RECORDS SUMMARY | 2024-01-10 08:25 | XMS RPT_ITS | CCD ---
Author Name Unknown Address [address] [place] [address] Organization [facility] Results Test Name Value Interpretation Reference Range Facil ity Progress note 12-22-2020 Note Date & Type Note Facility 12-22-2020 Note HNO ID: [id number] Author: Piper Granados) Laila Johnson Service: ? Author Type: Concrete Engineer Type: Progress Notes Filed: 12/22/2020 1:59 PM Note Text: Radiology Service Progress Note PATIENT NAME: Clau Smiley DATE OF SERVICE: December 22, 2020 TIME: 1:59 PM PATIENT IDENTITY VERIFICATION COMPLETED USING TWO (2) IDENTIFIERS: Name and Date of confirmed by patient verbally. FALL SCREENING: Has the patient had 2 falls in the last year or 1 fall with injury or currently using an Ambulatory Assistive Device (Walker, Cane, Wheelchair, Crutches, etc.)? No PATIENT GENDER DATA: Female. status: : No status: NO. PATIENT RELEVANT IMPLANT DATA REVIEWED: Not Applicable RADIOLOGY DEPARTMENT: Mammography PERIPHERAL IV DATA: Not applicable SIGNED BY: Laila Finch December 22, 2020 1:59 PM [facility] Summary Purpose Family History No Family History Records Found Advance Directives No Advanced Directives Records Found Additional Source Comments INFORMATION SOURCE (unrecogn ized section and content) FOR RECORDS PERTAINING TO PATIENTS WHO ARE OR HAVE BEEN ENROLLED IN A CHEMICAL DEPENDENCY/SUBSTANCEABUSE PROGRAM, SOME INFORMATION MAY BE OMITTED. This clinical summary was aggregated from multiple sources. Caution should be exercised in using it in the provision of clinical care. This summary normalizes information from multiple sources, and as a consequence, information in this document may materially change the coding, format and clinical context of patient data. In addition, data may be omitted in some cases. CLINICAL DECISIONS SHOULD BE BASED ON THE PRIMARY CLINICAL RECORDS. [facility]. provides no warranty or guarantee of the accuracy or completeness of information in this document.
[2024-01-10 12:20] LABS: Absolute Lymphocyte Count 2.33 X10^3/uL (0.83-4.51); Absolute Neutrophil Count 3.8 X10^3/uL (2.0-7.7); Basophil# 0.04 X10^3/uL; Basophil% 0.6 % (0-1); Eosinophil# 0.09 X10^3/uL; Eosinophils% 1.3 % (0-5); Hemoglobin 12.3 g/dL (12.0-15.0); Lymphocyte # 2.33 X10^3/ul (0.83-4.51); Lymphocyte % 34.6 % (19-41); Mean Corp Hgb Conc 30.8 g/dL (32-36); Mean Corpuscular Hgb 27.8 pg (27.0-32.0); Mean Corpuscular Volume 90.3 fL (81-99); Mean Platelet Vol. 10.1 fl (6.2-12.0); Monocyte# 0.51 X10^3/uL; Monocyte% 7.6 % (0-10); NRBC Flagged by Analyzer 0 % (0-5); Neutrophil # 3.76 X10^3/uL (2.7-7.7); Neutrophil % 55.8 % (47-70); Platelet Count 332 K/mm3 (150-450); RBC Distribution Width CV 14.7 % (11.6-14.6); Red Blood Count 4.43 M/mm3 (4.2-5.4); White Blood Count 6.7 K/mm3 (4.4-11.0)
[2024-01-10 12:58] LABS: ALB/GLOB Ratio 0.9 RATIO (0.9-2.4); AST(SGOT) 18 U/L (15-37); Alanine Aminotransfer ALT/SGPT 24 U/L (13-56); Albumin, Serum 3.7 g/dL (3.2-5.0); Alkaline Phosphatase 102 U/L (45-117); Anion Gap 5 (5-15); BUN 14 mg/dL (7-18); BUN/Creat Ratio 18.2 RATIO (10-20); Calcium,Total 8.8 mg/dL (8.5-10.1); Chloride 110 mmol/L (98-107); Cholesterol 157 mg/dL (200); Creatinine, Serum 0.77 mg/dL (0.55-1.02); EST Glomerular Filtration Rate 83 mL/min (>60); Est Glom Filt Rate - Afr Amer 101 mL/min (>60); Free T3 3.4 pg/mL (2.18-3.98); Globulin 3.9 g/dL (2.2-4.2); Glucose 95 mg/dL (74-106); High Density Lipoprotein 41 mg/dL; Protein, Total 7.6 g/dL (6.4-8.2); Sodium Level 139 mmol/L (136-145); T4 Free Direct 1.31 ng/dL (0.76-1.46); Thyroid Stim Hormone (TSH) 0.04 uIU/mL (0.358-3.74); Triglycerides 120 mg/dL; Very Low Density Lipoprotein 24 mg/dL (5-40)
== END | disposition home or self-care (01) ==
LOC: BFHLAB 08:04
PROVIDERS: PCP Family Medicine; Visit Provider Family Medicine
DX: Z00.00 Encounter for general adult medical examination without abnormal findings (principal); E03.9 Hypothyroidism, unspecified; E78.5 Hyperlipidemia, unspecified
CPT/HCPCS: 36415; 80053; 80061; 84439; 84443; 84481; 85025

== ENCOUNTER → 2024-04-12 | Outpatient (CLI) | payer OTHER, SELFPAY ==
[2024-04-12 16:27] LABS: Free T3 2.6 pg/mL (2.18-3.98); T4 Free Direct 1.14 ng/dL (0.76-1.46)
== END | disposition home or self-care (01) ==
LOC: LAB.FUTURE 11:26
PROVIDERS: PCP Family Medicine; Referring Provider Family Medicine; Visit Provider Family Medicine
DX: E03.9 Hypothyroidism, unspecified (principal)
CPT/HCPCS: 36415; 84439; 84443; 84481

== ENCOUNTER → 2024-05-09 | Outpatient (CLI) | payer OTHER, SELFPAY ==
--- NOTE | 2024-05-09 16:06 | BI_ITS ---
MAMMOGRAPHY - BILATERAL SCREENING REASON FOR EXAM: Female, 54 years old. Routine annual screening examination. PERTINENT HISTORY: Non-contributory. TECHNIQUE: Digital bilateral breast moose (3D mammographic acquisition) in the CC and MLO projections. 2-D mediolateral oblique (MLO) and craniocaudad (CC) views of both breasts were obtained. CAD: Full Field Digital Mammography with Computer Added Detection was performed. COMPARISON: Comparison is made with prior examination dated May 03, 2023 and March 29, 2022. FINDINGS: Breast Composition: The breasts are almost entirely fatty. There are no dominant masses or suspicious calcifications. Stable fat-containing bilateral axillary lymph nodes. No other significant abnormalities are identified. There has been no significant change since the prior study. BI/SCRN MAMM (CAD)W/MOOSE BILAT IMPRESSION: Stable bilateral screening mammogram. Yearly follow-up mammogram recommended. (A) ASSESSMENT CATEGORY: BIRADS Category 2: Benign. A letter regarding these results will be sent to the patient by the facility within 30 days. Approximately 10% of breast cancers are not detected by mammography. A normal mammogram should not delay biopsy of a clinically suspicious abnormality. [id number] Electronically Signed: David Patton MD at 7:59 EDT ,
== END | disposition home or self-care (01) ==
PROVIDERS: PCP Family Medicine; Referring Provider Obstetrics & Gynecology; Visit Provider Obstetrics & Gynecology
DX: Z12.31 Encounter for screening mammogram for malignant neoplasm of breast (principal)
CPT/HCPCS: 77063; 77067

== ENCOUNTER 2024-06-03 18:41 | Emergency (ER) | payer OTHER, SELFPAY ==
[2024-06-03 18:42] VITALS: BP 144/76; PULSE 118; RESP 16; TEMP 36.6; O2SAT 100; BMI 33.1
--- NOTE | 2024-06-03 19:03 | ED.VIS.FEGU ---
HPI HPI - Female History of Present Illness Chief Complaint: Complaint Detail of Chief Complaint: Dysuria and frequency and pelvic pressure Informant: patient Narrative Narrative: Patient presents to the emergency department with complaint of dysuria and frequency and pelvic pressure. She had similar symptoms 2 years ago and was treated with Pyridium and an antibiotic and symptoms resolved. Patient denies fevers chills or sweats. She denies back pain. [facility] Medical History Abdominal pain Acid reflux Arthritis Bloating Constipation Depression with anxiety Diarrhea Hemorrhoids History of back problems Hypertension Thyroid disease Uterine polyp Home Medications ?Medication ?Instructions ?Recorded ?Last Taken ?Type alprazolam 0.5 mg tablet (Xanax) 0.5 mg PO TID PRN anxiety 12/14/19 01/02/20 History cholecalciferol (vitamin D3) 1,250 50,000 unit PO .[id number] 12/14/19 Unknown History mcg (50,000 unit) capsule omeprazole 40 mg capsule,delayed 40 mg PO PRN PRN Indigestion 12/31/19 01/02/20 History release diltiazem HCl 180 mg 360 mg PO DAILY 09/08/22 Unknown History capsule,extended release 24 hr thyroid (pork) 60 mg tablet 125 mg PO DAILY 09/08/22 Unknown History (Chauvin Thyroid) cephalexin 500 mg capsule 500 mg PO TID 7 days #21 caps 12/31/22 Unknown Rx phenazopyridine 200 mg tablet 200 mg PO TID PRN pain 3 days #9 12/31/22 Unknown Rx (Pyridium) tabs sertraline 50 mg tablet (Zoloft) 50 mg PO DAILY 03/17/23 Unknown History phenazopyridine 200 mg tablet 200 mg PO BID PRN PRN Pain #10 tabs 06/03/24 Unknown Rx (Pyridium) sulfamethoxazole 800 1 tab PO BID #14 TABLETS 06/03/24 Unknown Rx mg-trimethoprim 160 mg tablet Allergy/AdvReac Type Severity Reaction Status Date / Time No Known Allergies Allergy Verified 06/03/24 18:42 Family History Grandmother Arthritis Colon cancer Grandmother CVA (cerebral vascular accident) Mother Arthritis Cancer Hypertension Father Hypertension Uncle CVA (cerebral vascular accident) Surgical History History of laparoscopic cholecystectomy History of tubal ligation Social History Smoking Status: Current every day smoker tobacco type: cigarettes alcohol intake: never substance use type: does not use caffeine: Yes what type of physical activity do you participate in: none seatbelt use: always do you feel safe at home: Yes additional social history: Dre- [employer]. at [employer] Patient works at [employer] ROS ROS ED Review of Systems ROS Unobtainable: other Constitutional Constitutional ED: Reports lethargy; Denies chills, fever(s), sweats or weight loss Eyes Eyes: Denies blurry vision, change in vision or diplopia ENT ENT ED: Denies rhinorrhea or sore throat Cardiovascular Cardiovascular: Denies chest pain, orthopnea or racing heartbeat Respiratory/Chest Respiratory/Chest: Denies cough, dyspnea, dyspnea on exertion, orthopnea or sputum Gastrointestinal Gastrointestinal: Reports abdominal pain; Denies diarrhea, nausea or vomiting Genitourinary Genitourinary ED: Reports dysuria and urinary frequency; Denies hematuria Musculoskeletal Musculoskeletal: Denies arthralgias, back pain, myalgias or neck pain Integumentary Denies abscess, Abrasions or rash Neurologic Neurologic: Denies headache(s) or weakness Psychiatric Psychiatric: Denies anxiety, depression or suicidal thoughts Endocrine Endocrinology: Denies polydipsia, polyphagia or polyuria Hematologic/Lymphatic Hematologic/Lymphatic: Denies easy bleeding, easy bruising or lymphadenopathy Allergic/Immunologic Allergic/Immunologic ED: Denies mouth swelling, tongue swelling or urticaria EXAM Physical Exam Const Vital Signs: 06/03/24 18:42 Temperature 97.8 F Temperature Source Temporal Pulse Rate 118 H Respiratory Rate 16 Blood Pressure 144/76 H Blood Pressure Mean 98 Pulse Ox 100 Oxygen Delivery Method Room Air Positive well nourished and well developed General Appearance ED: well developed and NAD HEENT Reports TM's clear and moist mucous membranes normocephalic and atraumatic; Negative for trauma or tenderness Tympanic Membrane ED: Yes TM's clear Eyes PERRL and EOMs intact bilaterally General Eye ED: Negative for pale conjunctiva or scleral icterus Neck no lymphadenopathy, supple and no JVD General: Negative for tenderness Chest Wall inspection of chest normal and palpation of chest normal Chest: Negative for tenderness Resp normal respiratory effort and clear to auscultation bilaterally Effort and Inspection: Negative for respiratory distress or pain with movement Auscultation: Negative for rhonchi, wheezes or diminished lung sounds Cardio regular rate, regular rhythm, S1 normal heart sound, S2 normal heart sound and no murmurs Peripheral Pulses: pulses 2+ throughout GI normal to inspection, nondistended, normoactive bowel sounds, soft to palpation, non-tender, non-distended and no masses Back/Spine no CVA tenderness and no thoracic nor lumbar tenderness Extremity normal to inspection General Extremety ED: Negative for edema General Extremity: Negative for edema Neuro oriented x3, CN's II-XII intact bilaterally, no sensory deficits noted and gait normal Sensorium / Orientation: awake, alert, oriented to person, oriented to place and oriented to time Motor Exam: strength 5/5 throughout and strength abnormal Psych mental status grossly normal Skin no rashes or lesions noted and no wounds MDM MDM MDM Narrative Medical decision making narrative: Patient presents with dysuria and frequency with symptoms consistent for UTI. She had prior ER prior similar symptoms 2 years ago. Patient had a urinalysis that was positive for UTI. I did send off urine culture. Patient was started on Bactrim and Pyridium. Patient will be discharged to home. Advised to return if severe pain, vomiting, severe back pain fever, or condition worsening way. Lab Data Attestation: I reviewed the patient's lab results. Discharge Plan Triage Chief Complaint: Complaint ED Provider: Marjorie Kelly Dx/Rx/DC Orders Clinical Impression: UTI (urinary tract infection) Instructions: ED UTIs Women Prescriptions: New phenazopyridine [Pyridium] 200 mg tablet 200 mg PO BID PRN PRN (Reason: Pain) Qty: 10 0RF sulfamethoxazole-trimethoprim 800-160 mg tablet 1 tab PO BID Qty: 14 0RF No Action alprazolam [Xanax] 0.5 mg tablet 0.5 mg PO TID PRN (Reason: anxiety) cholecalciferol (vitamin D3) 1,250 mcg (50,000 unit) capsule 50,000 unit PO .[id number] thyroid (pork) [Chauvin Thyroid] 60 mg tablet 125 mg PO DAILY diltiazem HCl 180 mg capsule,extended release 24hr 360 mg PO DAILY sertraline [Zoloft] 50 mg tablet 50 mg PO DAILY omeprazole 40 MG capsule,delayed release(DR/EC) 40 mg PO PRN PRN (Reason: Indigestion) phenazopyridine [Pyridium] 200 mg tablet 200 mg PO TID PRN (Reason: pain) 3 Days Qty: 9 0RF cephalexin 500 mg capsule 500 mg PO TID 7 Days Qty: 21 0RF Primary Care Provider: Huma Alves Referrals: Huma Alves DO [Primary Care Provider] - 3-5 Days Print Language: Chinese Disposition Disposition: Home, Self Care
[2024-06-03 19:16] LABS: Mucous, Urine 0 SEEN /hpf (<or=2+)
[2024-06-03 19:18] LABS: Color, Urine Yellow (Yellow); Glucose, Dipstick Normal (Normal); Ketone-Dipstick Negative (Negative); Leukocyte Esterase-Dipstick 500 /ul (Negative); Nitrite-Dipstick Negative (Negative); Occult Blood-Urine 250 /ul (Negative); Protein-Dipstick 30 mg/dl (Negative); Urine Bilirubin Dipstick Negative (Negative); Urine Clarity Cloudy (Clear); Urine Urobilinogen Normal (Normal)
[2024-06-03 19:58] LABS: Bacteria 1+ /hpf (None Seen); Red Blood Cells-Urine 25-50 SEEN /hpf (0-5); Squamous Epithelial Cells - UA 0-5 SEEN /hpf (5-10); White Blood Cells >100 SEEN /hpf (0-5)
[2024-06-03 20:07] VITALS: BP 145/93; PULSE 89; RESP 16; TEMP 36.2; O2SAT 98
[2024-06-03] MEDS: Smz/Tmp Ds Tablet 1 TABLET PO (20:07)
[2024-06-03] MEDS: Phenazopyridine 95 MG Tablet 190 MG PO (20:07)
== END 2024-06-03 20:11 | disposition home or self-care (01) ==
PROVIDERS: Emergency Provider Emergency Medicine; PCP Family Medicine; Visit Provider Emergency Medicine
DX: N39.0 Urinary tract infection, site not specified (principal); I10 Essential (primary) hypertension; F17.210 Nicotine dependence, cigarettes, uncomplicated; Z79.899 Other long term (current) drug therapy
CPT/HCPCS: 81001; 87086; 87088; 87186; 99283

== ENCOUNTER → 2024-06-28 | Outpatient (CLI) | payer OTHER, SELFPAY | END | disposition home or self-care (01) | LOC: LABSPEC 12:52 | PROVIDERS: PCP Family Medicine; Referring Provider Family Medicine; Visit Provider Family Medicine | DX: R30.0 Dysuria (principal) | CPT/HCPCS: 87086; 87088 ==

== ENCOUNTER → 2024-09-27 | Outpatient (CLI) | payer OTHER, SELFPAY ==
[2024-09-27 13:04] LABS: Free T3 2.7 pg/mL (2.18-3.98); T4 Free Direct 1.32 ng/dL (0.76-1.46); Thyroid Stim Hormone (TSH) 0.577 uIU/mL (0.358-3.740)
== END | disposition home or self-care (01) ==
LOC: BFHLAB 09:18
PROVIDERS: PCP Family Medicine; Referring Provider Family Medicine; Visit Provider Family Medicine
DX: E03.9 Hypothyroidism, unspecified (principal)
CPT/HCPCS: 36415; 84439; 84443; 84481

== ENCOUNTER → 2025-04-10 | Outpatient (CLI) | payer OTHER, SELFPAY ==
--- NOTE | 2025-04-10 10:33 | RAD_ITS ---
PROCEDURE: L/S SPINE MIN 4 VIEWS 04/10/2025 REASON FOR EXAM: LEFT HIP PAIN, LOW BACK PAIN TECHNIQUE: Four views; AP, bilateral oblique and lateral COMPARISON: None available FINDINGS: 5 [id number] lumbar vertebral body types identified. Rightward curvature, scoliosis. No evidence of spondylolysis. No fracture or malalignment. L2-3 mild disc space narrowing and degenerative endplate changes L3-4 mild disc space narrowing and degenerative endplate changes L4-5 mild disc space narrowing RAD/L/S Spine Min 4 Views IMPRESSION: Mild spondylosis/discogenic change as above. Reading Location: [id number]
--- NOTE | 2025-04-10 10:33 | RAD_ITS ---
PROCEDURE: HIP, UNI W/ PELVIS 2-3 VIEWS 04/10/2025 REASON FOR EXAM: LEFT HIP PAIN, LOW BACK PAIN TECHNIQUE: AP pelvis and two views left hip, 3 total images COMPARISON: None available FINDINGS: Bilateral symmetric appearing SI joints and pubic symphysis appear within limits. Bilateral pelvic tubal ligation clips. The joint spaces appear within limits. No fracture or dislocation. RAD/HIP, UNI W/ Pelvis 2-3 Views IMPRESSION: Study appears within limits. Reading Location: [id number]
== END | disposition home or self-care (01) ==
LOC: MTRAD 10:31
PROVIDERS: PCP Family Medicine; Referring Provider Family Medicine; Visit Provider Family Medicine
DX: M25.552 Pain in left hip (principal); M54.50 Low back pain, unspecified
CPT/HCPCS: 72110; 73502

== ENCOUNTER 2025-05-06 16:00 | Outpatient (RCR) | payer OTHER, SELFPAY ==
--- NOTE | 2025-04-22 17:31 | HP.PTEVAL_ITS ---
Patient's Visit Information Visit Information Visit Information: CLAU DONALD is a 55 year old F referred to Physical Therapy by Dr. Huma Alves DO with a diagnosis of Lumbar Pain. Date of Evaluation: 04/22/25 Physical Therapist: Sandra Henriquez DPT Visit Plan Frequency: 1x/Week Duration: 4 Weeks Plan: 1x a week for 4 weeks for core strength/stabilization program for HEP- give handouts each visit HEP Given IE: TA contraction, prone prop, bridge, clams Subjective Subjective: Patient reports that she started to have really bad groin pain and left hip pain. She just went and got the [employer] shoes with arch support- she was taping her arches and that would help the pain go away. She has pain on the outside of the hip that when she lays on them it really bothers her. She had x- rays taken. She needs exercises that she can do at home. Has always had sciatic problems that have been intermittent. In Jul she walked the fair for 8 hours- got into [facility] for massage therapy and its never gotten back to 100%. The left side of the back is more sore- she can't pinpoint it until someone starts to put pressure on it. Describes the pain as achy- the back is achy unless you hit the right spot. Getting up/down or moving- its worse until she gets moving then it starts hurting again. Work: she sits- gets up/down as often as she can. No pain that radiates below the knees currently but has on/off. She has N/T in her feet when she sits but they are sore when she moves. The groin pain was sharp and shooting and would almost knock her over. Agg: after picking up her grandson Eases: Aleve, wrapping her feet. She was just wrapping her arch. Sleep: disturbed- due to being on the right and left sides. Active with her life but does not exercise. She has done massage therapy but the pain was coming right back- SKTC and cat/cow and bridge (that is more uncomfortable but helps when she gets through it). No loss or change in bowel or bladder from the back or hip/pain. PMHx/Meds: see list in chart. Objective Objective: Posture: forward head, rounded shoulders- can correct but does not maintain Gait: good arm swing and trunk rotation HR/TR: able but reports increased tightness with TR bilateral SLS: Right: 5 seconds Left: 1-2 seconds then LOB increased pelvic sway bilaterally ROM: Lumbar: WNL reports increased discomfort and tightness with Sidebend to the left. LE: bilateral WNL Strength: Core: poor, Hip: Left: 4/5 throughout flexion/extn/abd, 4-/5 IR/ER Right: 4/5 throughout Knee: 5/5 Ankle: 5'5 Flex: HS: Left: severe Right: moderate Gastroc: moderate bilateral Sensation: WNL to gross touch bilateral Flexion/Extn: no change in s/s with repetitive testing, Dural Signs: negative Special Tests L/S Slump test left side: Negative L/S Slump test right side: Negative L/S Left Straight Leg Raise: Negative L/S Right Straight Leg Raise: Negative R Hip Scour: Negative R Hip SAPNA - Intraarticular Pathology: Negative R Hip FADDIR - Labrum: Negative L Hip Scour: Negative L Hip SAPNA - Intraarticular Pathology: Negative L Hip FADDIR - Labrum: Negative Balance/Special Test Scores Oswestry Low Back Score: 20 Goals Goal 1:: Patient will be I with HEP and progression Goal Time Frame: 4-6 Weeks Goal 2:: Patient will maintain proper posture t/o tx session to demo increased core s/s Goal Time Frame: 4-6 Weeks Goal 3:: Patient will SLS for 15 sec without pelvic sway or LOB Goal Time Frame: 4-6 Weeks Goal 4:: Patient will report 80% improvement Goal Time Frame: 4-6 Weeks Rehabilitation Potential Physical Therapy Diagnosis: Patient presents with decreased core strength/stabilization, flex and muscular endurance leading to poor posture and increased pain with ADL's. Rehabilitation Potential: Fair Anticipated Interventions Patient/Client Instruction: Educate patient on: Benefits of Fitness Program Therapeutic Exercise to Include: Strength training, Endurance training, Balance training, Coordination, Agility training, Body mechanics, Postural training, Flexibilty training, Gait and locomotor training, Neuromotor development, Dynamic Lumbar Stabilization and Scapular Strength/Stabilization For the Purpose of:: To improve muscle performance and motor function Cryotherapy (ice pack, ice massage): Yes Thermo therapy (hot pack): Yes Text: Thank you for the opportunity to evaluate your patient. For Medicare and Medicare HMO plans, please review the plan of care and approve it. It will need to be FAXED BACK to us at [phone] for Medicare purposes. For Medicare only, by signing this I certify the plan of care. Please let me know if there are questions or concerns regarding this plan of care. Physician Signature: Date:
--- NOTE | 2025-06-18 08:00 | HP.PT.NRP ---
Patient Information Patient Information: CLAU DONALD was seen in my office for initial evaluation on 04/22/25. The following Plan of Care was established for this patient: POC Established Initial Frequency: 1x/Week Initial Duration: 4 Weeks Anticipated Interventions Patient/Client Instruction: Educate patient on: Benefits of Fitness Program Therapeutic Exercise to Include: Strength training, Endurance training, Balance training, Coordination, Agility training, Body mechanics, Postural training, Flexibilty training, Gait and locomotor training, Neuromotor development, Dynamic Lumbar Stabilization and Scapular Strength/Stabilization For the Purpose of:: To improve muscle performance and motor function Cryotherapy (ice pack, ice massage): Yes Thermo therapy (hot pack): Yes Last Seen Last Seen: This patient was last seen in our office . Pertinent comments regarding their Physical therapy will appear below: Patient attended physical therapy for initial evaluation and 1 follow up session for home exercise program. Appropriate to be discharged at this time and continue program. Call if questions or concerns. At this point I will be discontinuing this patient from physical therapy. I would be happy to see this patient again in the future if found appropriate by the physician. Thank you! Sandra Henriquez, DPT Balance/Gait/Functional tests Balance/Special Test Scores Oswestry Low Back Score: 20
== END 2025-05-06 19:00 | disposition home or self-care (01) ==
LOC: PT 16:00
PROVIDERS: PCP Family Medicine; Referring Provider Family Medicine; Visit Provider Family Medicine
DX: M51.369 Other intervertebral disc degeneration, lumbar region without mention of lumbar back pain or lower extremity pain (principal); M54.30 Sciatica, unspecified side
CPT/HCPCS: 97110; 97162

== ENCOUNTER → 2025-05-14 | Outpatient (CLI) | payer OTHER, SELFPAY ==
[2025-05-14 11:14] LABS: Hematocrit 40.3 % (37-47); Hemoglobin 13.1 g/dL (12.0-15.0); Immature Granulocytes Count 0.010 X10^3/uL (0.0-0.0); Mean Corp Hgb Conc 32.5 g/dL (32-36); Mean Corpuscular Volume 88.2 fL (81-99); Mean Platelet Vol. 10.7 fl (6.2-12.0); NRBC Flagged by Analyzer 0 % (0-5); Platelet Count 318 K/mm3 (150-450); RBC Distribution Width CV 14.6 % (11.6-14.6); RBC Distribution Width SD 47.1 fl (35.1-43.9); Red Blood Count 4.57 M/mm3 (4.2-5.4); White Blood Count 6.0 K/mm3 (4.4-11.0)
[2025-05-14 11:22] LABS: AST(SGOT) 18 U/L (<=31); Alanine Aminotransfer ALT/SGPT 18 U/L (<=34); Albumin, Serum 4.4 g/dL (3.5-5.0); Alkaline Phosphatase 99 U/L (35-104); Anion Gap 12 (5-15); BUN 13 mg/dL (4-19); BUN/Creat Ratio 16.1 RATIO (10-20); Calcium,Total 9.1 mg/dL (7.6-11.0); Carbon Dioxide 20.7 mmol/L (21.0-32.0); Chloride 106 mmol/L (98-108); Cholesterol 172 mg/dL (<=200); Globulin 2.9 g/dL (2.2-4.2); Glucose 97 mg/dL (70-99); Low Density Lipoprotein Calc. 104 mg/dL; Potassium 3.9 mmol/L (3.3-5.1); Triglycerides 136 mg/dL; Very Low Density Lipoprotein 27 mg/dL (5-40); cholesterol:hdl ratio screen 4.18
[2025-05-14 12:16] LABS: Free T3 3.3 pg/mL (2.18-3.98)
== END | disposition home or self-care (01) ==
LOC: MTLAB 07:31
PROVIDERS: PCP Family Medicine; Referring Provider Family Medicine; Visit Provider Family Medicine
DX: Z00.00 Encounter for general adult medical examination without abnormal findings (principal); E03.9 Hypothyroidism, unspecified; E78.5 Hyperlipidemia, unspecified
CPT/HCPCS: 36415; 80053; 80061; 84439; 84443; 84481; 85025

== ENCOUNTER → 2025-06-14 | Outpatient (CLI) | payer OTHER, SELFPAY ==
--- NOTE | 2025-06-14 15:38 | BI_ITS ---
EXAM: SCRN MAMM (CAD)W/MOOSE BILAT DATE: 06/14/2025 CLINICAL HISTORY: F, Age 55 y/o , SCREENING TECHNIQUE: SCRN MAMM (CAD)W/MOOSE BILAT COMPARISON: Prior exam(s) were compared FINDINGS: TISSUE DENSITY: There are scattered areas of fibroglandular density. Bilateral Breast Mammographic Findings: No suspicious masses, calcifications or other abnormalities are identified. BI/SCRN MAMM (CAD)W/MOOSE BILAT IMPRESSION: No mammographic evidence of malignancy in either breast OVERALL FINAL ASSESSMENT BI-RADS 1: NEGATIVE. RECOMMENDATION: Routine annual follow-up in 1 Year A letter with findings and recommendations will be mailed to the patient. Reading Location: [id number]
--- OUTSIDE RECORDS SUMMARY | 2025-06-14 19:25 | XMS RPT_ITS | CCD ---
Author Organization [facility] Care Team Providers Care Terrazzo Finisher Name Role Phone Dr. Huma Alves Primary Care Provider Dr. Huma Alves Referring Provider [phone] Lionel WARDROBE ATTENDANT, MAT [place] Attending Provider Dr. Catrachito Falcon Attending Provider [phone] Brielle Mcgowan Attending Provider [phone] Dr. Huma Alves Primary Care Provider Dr. Catrachito Falcon Referring Provider [phone] Huma Alves Referring Provider [phone] HUMA ALVES DO Primary Care Physician JUANITA REID MD Attending Unavailable DEXYS DO, DR HUMA Castro Primary Care Unavailable Malys, Huma Attending Unavailable Malys, Huma Referring Unavailable Malys, Huma Primary Care Unavailable Malys, Huma Attending Unavailable Malys, Huma Referring Unavailable Malys, Huma Primary Care Unavailable Malys, Huma Referring Unavailable Malys, Huma Primary Care Unavailable Brielle Mcgowan Attending Unavailabl e MalysHuma Attending Unavailable Malys, Huma Referring Unavailable Malys, Huma Primary Care Unavailable Malys, Huma Referring Unavailable Malys, Huma Primary Care Unavailable Malys, Huma Attending Unavailable UngurValerieus Attending Unavailable Malys, Huma Primary Care Unavailable Malys, Huma Referring Unavailable Malys, Huma Primary Care Unavailable Malys, Huma Attending Unavailable Malys, Huma Attending Unavailable Malys, Huma Referring Unavailable Malys, Huma Primary Care Unavailable Medications Current Medications Medication Drug Class(es) Dates Sig (Normalized) Sig (Original) ALPRAZolam 0.5 mg oral tablet (7 sources) Benzodiazepine Start: 07-03-2024 ALPRAZolam 0.5 mg oral tablet Dose : 0.5 mg = 1 tab(s), Oral, TID, 0 Refill(s) Start Date: 07/03/24 Status: Ordered Start: 12-14-2019 take 1 tablet by ines th three times daily Alprazolam (Xanax) 0.5 mg tablet Active 0.5 MG PO THREE TIMES A DAY December 14, 2019 12:00am cephalexin 500 mg oral capsule (2 sources) Cephalosporin Antibacterial Start: 12-31-2022 take 500 mg by mouth three times daily Cephalexin Active 500 MG PO THREE TIMES A DAY 03 06December 31, 2022 12:00am cholecalciferol 1.25 mg oral capsule (6 sources) Vitamin D Start: 12-14-2019 take 38957 [IU] by mouth every other week Cholecalciferol (Vitamin D3) Active 13735 UNIT PO .[id number] December 14, 2019 12:00am 24 hr dilTIAZem hydrochloride 360 mg extended release oral capsule (11 sources) Calcium Channel Zoey Start: 07-03-2024 take 1 capsule by mouth every hour, then take 1 capsule by mouth once daily dilTIAZem 360 mg/24 hours oral capsule, extended release Dose : 360 mg = 1 cap(s), Oral, qDay, # 30 cap(s), 0 Refill(s) Start Date: 07/03/24 Status: Ordered Start: 09-08-2022 take 360 mg by mouth once daily Diltiazem Hcl Active 360 MG PO DAILY September 08, 2022 7:33am Start: 12-14-2019 End: 09-08-2022 take 180 mg by mouth once daily Diltiazem Hcl Discontinued 180 MG PO DAILY December 14, 2019 12:00am September 08, 2022 7:34am FLUoxetine 40 mg oral capsule (4 sources) Serotonin Reuptake Inhibitor Start: 09-08-2022 take 1 capsule by mouth once daily Fluoxetine (Prozac) 40 mg capsule Active 40 MG PO DAILY September 07, 2022 11:00pm levothyroxine sodium 0.125 mg oral tablet (1 source) l-Thyroxine Start: 07-03-2024 Synthroid 125 mcg (0.125 mg) oral tablet Dose : 125 mcg = 1 tab(s), Oral, qDay, 0 Refill(s) Start Date: 07/03/24 Status: Ordered lisdexamfetamine dimesylate 30 mg oral capsule (1 source) Central Nervous System Stimulant Start: 07-03-2024 Vyvanse 30 mg oral capsule Dose : 30 mg = 1 cap(s), Oral, qAM, 0 Refill(s) Start Date: 07/03/24 Status: Ordered losartan potassium 25 mg oral tablet (1 source) Angiotensin 2 Receptor Zoey Start: 07-03-2024 losartan 25 mg oral tablet Dose : 25 mg = 1 tab(s), Oral, qDay, # 30 tab(s), 0 Refill(s) Start Date: 07/03/24 Status: Ordered omeprazole 20 mg delayed release oral tablet (7 sources) Proton Pump Inhibitor Start: 07-03-2024 PriLOSEC OTC 20 mg oral delayed release tablet Dose : 20 mg = 1 tab(s), Oral, qDayAC, # 90 tab(s), 0 Refill(s) Start Date: 07/03/24 Status: Ordered Start: 12-31-2019 Omeprazole Act bunny 40 MG PO NEEDED December 31, 2019 12:00am phenazopyridine hydrochloride 200 mg oral tablet (2 sources) Start: 12-31-2022 take 1 tablet by mouth three times daily Phenazopyridine (Pyridium) 200 mg tablet Active 200 MG PO THREE TIMES A DAY 9 3 December 31, 2022 1:52am thyroid (skilled nursing) 60 mg oral tablet (10 sources) Start: 12-14-2019 End: 09-08-2022 take 1 tablet by mouth once daily Thyroid (Pork) (Geyser Thyroid) 60 mg tablet Active 125 MG PO DAILY September 08, 2022 7:32am topiramate 50 mg oral tablet (2 sources) Start: 12-23-2022 take 1 tablet by mouth once daily Topiramate (Topamax) 50 mg tablet Active 50 MG PO DAILY December 23, 2022 12:00am Vitamin D2 1.25 mg (50,000 intl units) oral capsule (1 source) Start: 07-03-2024 Vitamin D2 1.2 5 mg (50,000 intl units) oral capsule Dose : 50,000 International_Unit = 1 cap(s), Oral, qWeek, # 4 cap(s), 0 Refill(s) Start Date: 07/03/24 Status: Ordered Completed/Discontinued Medications Medication Drug Class(es) Dates Sig (Normalized) Sig (Original) Multivitamin preparation (6 sources) Start: 12-14-2019 End: 09-08-2021 take 1 capsule by mouth once daily multivitamin Discontinued 1 CAP PO DAILY December 14, 2019 4:32pm September 08, 2021 2:30pm Start: 12-14-2019 End: 09-08-2021 take 1 capsule by mouth once daily multivitamin Discontinued 1 CAP PO DAILY December 14, 2019 12:00am September 08, 2021 1:30pm Start: 12-14-2019 End: 09-08-2021 take 1 capsule by mouth once daily multivitamin Discontinued 1 CAP PO DAILY December 14, 2019 1:00am September 08, 2021 2:30pm sertraline 100 mg oral tablet (6 sources) Serotonin Reuptake Inhibitor Start: 12-14-2019 End: 09-08-2022 take 1 tablet by mouth once daily Sertraline (Zoloft) 100 mg tablet Discontinued 100 MG PO DAILY December 14, 2019 12:00am September 08, 2022 7:33am Problems Active Problems Problem Classification Problem Date Documented Date Episodic/Chronic Immunizations and screening for infectious disease (2 sources) Encounter for screening for human papillomavirus (HPV); Translations: [Encounter for screening for human papillomavirus (HPV)] Onset: 07-03-2024 Episodic Other female genital disorders (2 sources) Other specified noninflammatory disorders of vagina; Translations: [Other specified noninflammatory disorders of vagina] Onset: 07-03-2024 Episodic Other non-traumatic joint disorders (1 source) Pain in left hip; Translations: [Pain in left hip] Onset: 04-15-2025 Episodic Other screening for suspected conditions (not mental disorders or infectious disease) (3 sources) Encounter for screening for malignant neoplasm of cervix; Translations: [Encounter for screening mammogram for malignant neoplasm of breast] Onset: 07-03-2024 Episodic Prolapse of female genital organs (1 source) Female genital prolapse, unspecified; Translations: [Female genital prolapse, unspecified] Onset: 05-06-2025 Chronic Residual codes; unclassified (4 sources) Obstructive sleep apnea syndrome; Translations: [Obstructive sleep apnea (adult) (pediatric)] 12-23-2022 Chronic Residual codes; unclassified (5 sources) Obstructive sleep apnea (adult) (pediatric); Translations: [Obstructive sleep apnea (adult)(pediatric)] Chronic Spondylosis; intervertebral disc disorders; other back problems (1 source) Sciatica, unspecified side; Translations: [Sciatica, unspecified side] Onset: 05-06-2025 Episodic Substance-related disorders (9 sources) Cigarette smoker ; Translations: [Nicotine dependence, cigarettes, uncomplicated] Chronic Thyroid disorders (1 source) Hypothyroidism, unspecified; Translations: [Hypothyroidism, unspecified] Onset: 10-25-2024 Chronic Unclassified (1 source) Other intervertebral disc degeneration, lumbar region without mention of lumbar back pain or lower extremity pain; Translations: [Other intervertebral disc degeneration, lumbar region without mention of lumbar back pain or lower extremity pain] Onset: 05-06-2025 Urinary tract infections (2 sources) Acute hemorrhagic cystitis; Translations: [Acute cystitis with hematuria] 12-31-2022 Episodic Past or Other Problems Problem Classification Problem Date Documented Da te Episodic/Chronic Genitourinary symptoms and ill-defined conditions (1 source) Dysuria; Translations: [Dysuria] Onset: 07-19-2024 Episodic Results Test Name Value Interpretation Reference Range Facility CBC W/Diff, Automatedon 07-0 Absolute Lymph 2.26 X10 3/uL Normal 0.83-4.51 [facility] Comment on above: Performed By: #### L 500.4050, L501.9520, L506.0400, L500.4100, L100.0100, L501.58478 #### [facility] [address] [place], [address] Absolute Neut 3.0 X10 3/uL Normal 2.0-7.7 [facility] Comment on above: Performed By: #### L 500.4050, L501.9520, L506.0400, L500.4100, L100.0100, L501.06803 #### [facility] [address] [place], [address] Basophils/100 WBC (Bld) 0.8 % Normal 0-1 [facility] Comment on above: Performed By: #### L 500.4050, L501.9520, L506.0400, L500.4100, L100.0100, L501.31586 #### [facility] [address] [place], [address] Eosinophils/100 WBC (Bld) 2.0 % Normal 0-5 [facility] Comment on above: Performed By: #### L 500.4050, L501.9520, L506.0400, L500.4100, L100.0100, L501.90306 #### [facility] [address] [place], [address] Erythrocyte distribution width (RBC) [Ratio] 14.6 % Normal 11.6-14.6 [facility] Comment on above: Performed By: #### L 500.4050, L501.9520, L506.0400, L500.4100, L100.0100, L501.23200 #### [facility] [address] [place], [address] Hematocrit (Bld) [Volume fraction] 40.3 % Normal 37-47 [facility] Comment on above: Performed By: #### L 500.4050, L501.9520, L506.0400, L500.4100, L100.0100, L501.64378 #### [facility] [address] [place], [address] Hemoglobin (Bld) [Mass/Vol] 13.1 g/dL Normal 12.0-15.0 [facility] Comment on above: Performed By: #### L 500.4050, L501.9520, L506.0400, L500.4100, L100.0100, L501.23592 #### [facility] [address] [place], [address] IG% 0.200 Normal 0.0-0.9 [facility] Comment on above: Result Comment: IG% - Immature Granulocytes (promyelocytes, myelocytes and metamyelocytes) > 1% indicates that a LEFT SHIFT is Present. Performed By: #### L 500.4050, L501.9520, L506.0400, L500.4100, L100.0100, L501.36333 #### [facility] [address] [place], [address] Lymphocytes/100 WBC (Bld) 37.4 % Normal 19-41 [facility] Comment on above: Performed By: #### L 500.4050, L501.9520, L506.0400, L500.4100, L100.0100, L501.72594 #### [facility] [address] [place], [address] MCH (RBC) [Entitic mass] 28.7 pg Normal 27.0-32.0 [facility] Comment on above: Performed By: #### L 500.4050, L501.9520, L506.0400, L500.4100, L100.0100, L501.39025 #### [facility] [address] [place], [address] MCHC (RBC) [Mass/Vol] 32.5 g/dL Normal 32-36 [facility] Comment on above: Performed By: #### L 500.4050, L501.9520, L506.0400, L500.4100, L100.0100, L501.65178 #### [facility] [address] [place], [address] MCV (RBC) [Entitic vol] 88.2 fL Normal 81-99 [facility] Comment on above: Performed By: #### L 500.4050, L501.9520, L506.0400, L500.4100, L100.0100, L501.86409 #### [facility] [address] [place], [address] Monocytes/100 WBC (Bld) 9.8 % Normal 0-10 [facility] Comment on above: Performed By: #### L 500.4050, L501.9520, L506.0400, L500.4100, L100.0100, L501.48107 #### [facility] [address] [place], [address] Neutrophils/100 WBC (Bld) 49.8 % Normal 47-70 [facility] Comment on above: Performed By: #### L 500.4050, L501.9520, L506.0400, L500.4100, L100.0100, L501.43808 #### [facility] [address] [place], [address] Nucleated RBC (Bld) [#/Vol] 0 10*3/uL Normal 0-5 [facility] Comment on above: Performed By: #### L 500.4050, L501.9520, L506.0400, L500.4100, L100.0100, L501.72152 #### [facility] [address] [place], [address] Platelet mean volume (Bld) [Entitic vol] 10.7 fL Normal 6.2-12.0 [facility] Comment on above: Performed By: #### L 500.4050, L501.9520, L506.0400, L500.4100, L100.0100, L501.69493 #### [facility] [address] [place], [address] Platelets (Bld) [#/Vol] 318 10*3/uL Normal 150-450 [facility] Comment on above: Performed By: #### L 500.4050, L501.9520, L506.0400, L500.4100, L100.0100, L501.68419 #### [facility] [address] [place], [address] RBC (Bld) [#/Vol] 4.57 10*6/uL Normal 4.2-5.4 [facility] Comment on above: Performed By: #### L 500.4050, L501.9520, L506.0400, L500.4100, L100.0100, L501.06204 #### [facility] [address] [place], [address] RDW SD 47.1 fl High 35.1-43.9 [facility] Comment on above: Performed By: #### L 500.4050, L501.9520, L506.0400, L500.4100, L100.0100, L501.45544 #### [facility] [address] [place], [address] WBC (Bld) [#/Vol] 6.0 10*3/uL Normal 4.4-11.0 [facility] Comment on above: Performed By: #### L 500.4050, L501.9520, L506.0400, L500.4100, L100.0100, L501.89491 #### [facility] [address] [place], [address] Comprehensive [facility] 05-14-2025 Albumin [Mass/Vol] 4.4 g/dL Normal 3.5-5.0 [facility] Comment on above: Performed By: #### L 500.4050, L501.9520, L506.0400, L500.4100, L100.0100, L501.77620 #### [facility] [address] [place], [address] Albumin/Globulin [Mass ratio] 1.5 {ratio} Normal 0.9-2.4 [facility] Comment on above: Performed By: #### L 500.4050, L501.9520, L506.0400, L500.4100, L100.0100, L501.40036 #### [facility] [address] [place], [address] ALK PHOS 99 U/L Normal 35-104 [facility] Comment on above: Performed By: #### L 500.4050, L501.9520, L506.0400, L500.4100, L100.0100, L501.12344 #### [facility] [address] [place], [address] ALT [Catalytic activity/Vol] 18 U/L Normal <=34 [facility] Comment on above: Performed By: #### L 500.4050, L501.9520, L506.0400, L500.4100, L100.0100, L501.02816 #### [facility] [address] [place], [address] AST [Catalytic activity/Vol] 18 U/L Normal <=31 [facility] Comment on above: Performed By: #### L 500.4050, L501.9520, L506.0400, L500.4100, L100.0100, L501.82993 #### [facility] [address] [place], [address] Bilirubin [Mass/Vol] 0.24 mg/dL Normal 0.00-1.30 [facility] Comment on above: Performed By: #### L 500.4050, L501.9520, L506.0400, L500.4100, L100.0100, L501.14348 #### [facility] [address] [place], [address] BUN/CRE 16.1 RATIO Normal 10-20 [facility] Comment on above: Performed By: #### L 500.4050, L501.9520, L506.0400, L500.4100, L100.0100, L501.75905 #### [facility] [address] [place], [address] Calcium [Mass/Vol] 9.1 mg/dL Normal 7.6-11.0 [facility] Comment on above: Performed By: #### L 500.4050, L501.9520, L506.0400, L500.4100, L100.0100, L501.69957 #### [facility] [address] [place], [address] Chloride [Moles/Vol] 106 mmol/L Normal 98-108 [facility] Comment on above: Performed By: #### L 500.4050, L501.9520, L506.0400, L500.4100, L100.0100, L501.41237 #### [facility] [address] [place], [address] CO2 [Moles/Vol] 20.7 mmol/L Low 21.0-32.0 [facility] Comment on above: Performed By: #### L 500.4050, L501.9520, L506.0400, L500.4100, L100.0100, L501.86706 #### [facility] [address] [place], [address] Creatinine [Mass/Vol] 0.78 mg/dL Normal 0.70-1.20 [facility] Comment on above: Performed By: #### L 500.4050, L501.9520, L506.0400, L500.4100, L100.0100, L501.15185 #### [facility] [address] [place], [address] GAP 12 Normal 5-15 [facility] Comment on above: Performed By: #### L 500.4050, L501.9520, L506.0400, L500.4100, L100.0100, L501.35658 #### [facility] [address] [place], [address] GFR/1.73 sq M.predicted among non-blacks MDRD (S/P/Bld) [Vol rate/Area] 90 mL/min/{1.73_m2} Normal >60 [facility] Comment on above: Result Comment: mL/m in/1.73m2 CKD-EPI Creatinine Equation (2020) Performed By: #### L 500.4050, L501.9520, L506.0400, L500.4100, L100.0100, L501.81912 #### [facility] [address] [place], [address] Globulin (S) [Mass/Vol] 2.9 g/dL Normal 2.2-4.2 [facility] Comment on above: Performed By: #### L 500.4050, L501.9520, L506.0400, L500.4100, L100.0100, L501.90763 #### [facility] [address] [place], [address] Glucose [Mass/Vol] 97 mg/dL Normal 70-99 [facility] Comment on above: Performed By: #### L 500.4050, L501.9520, L506.0400, L500.4100, L100.0100, L501.59304 #### [facility] [address] [place], [address] Potassium [Moles/Vol] 3.9 mmol/L Normal 3.3-5.1 [facility] Comment on above: Performed By: #### L 500.4050, L501.9520, L506.0400, L500.4100, L100.0100, L501.09866 #### [facility] [address] [place], [address] Sodium [Moles/Vol] 139 mmol/L Normal 133-145 [facility] Comment on above: Performed By: #### L 500.4050, L501.9520, L506.0400, L500.4100, L100.0100, L501.35850 #### [facility] [address] [place], [address] T PROT 7.3 g/dL Normal 5.9-8.4 [facility] Comment on above: Performed By: #### L 500.4050, L501.9520, L506.0400, L500.4100, L100.0100, L501.59583 #### [facility] [address] [place], [address] Urea nitrogen [Mass/Vol] 13 mg/dL Normal 4-19 [facility] Comment on above: Performed By: #### L 500.4050, L501.9520, L506.0400, L500.4100, L100.0100, L501.36831 #### [facility] [address] [place], [address] Free T3on 05-14-2025 Free T3 [Mass/Vol] 3.3 pg/mL Normal 2.18-3.98 [facility] Comment on above: Performed By: #### L 500.4050, L501.9520, L506.0400, L500.4100, L100.0100, L501.68160 ####[facility] [address] [place], [address] Lipid Profileon 05-14-2025 CHOL:HDL 4.18 Normal [facility] Comment on above: Performed By: #### L 500.4050, L501.9520, L506.0400, L500.4100, L100.0100, L501.85783 #### [facility] [address] [place], [address] Cholesterol [Mass/Vol] 172 mg/dL Normal <=200 [facility] Comment on above: Result Comment: Chol esterol level, Desirable <200 mg/dL Borderline high cholesterol 200-239 mg/dL High cholesterol >=240 mg/dL Recommendations of the NCEP Adult Treatment Panel for the following risk-cutoff thresholds for the [place] population. Performed By: #### L 500.4050, L501.9520, L506.0400, L500.4100, L100.0100, L501.43638 #### [facility] [address] [place], [address] Cholesterol in HDL [Mass/Vol] 41 mg/dL Normal [facility] Comment on above: Result Comment: Gracie onal Cholesterol Education Program (NCEP) guidelines: <40 mg/dL: Low HDL-cholesterol (major risk factor for CHD) >= 60 mg/dL: High HDL-cholesterol (negative risk factor for CHD) HDL-cholesterol is affected by a number of factors, e.g. smoking, exercise, hormones, sex and age. Performed By: #### L 500.4050, L501.9520, L506.0400, L500.4100, L100.0100, L501.83409 #### [facility] [address] [place], [address] Cholesterol in LDL [Mass/Vol] 104 mg/dL Normal [facility] Comment on above: Result Comment: Bord wtyuez=199-428 mg/dL Higher Xfed=030 mg/dL or greater Performed By: #### L 500.4050, L501.9520, L506.0400, L500.4100, L100.0100, L501.35560 #### [facility] [address] [place], [address] Cholesterol in VLDL [Mass/Vol] 27 mg/dL Normal 5-40 [facility] Comment on above: Performed By: #### L 500.4050, L501.9520, L506.0400, L500.4100, L100.0100, L501.54265 #### [facility] [address] [place], [place], [address] Triglyceride [Mass/Vol] 136 mg/dL Normal [facility] Comment on above: Result Comment: The drugs N-Acetylcysteine and Metamizole may falsely depress this assay. Normal range: <150 mg/dL Borderline High: 150-199 mg/dL High: 200-499 mg/dL Very High: >500 mg/dL Performed By: #### L 500.4050, L501.9520, L506.0400, L500.4100, L100.0100, L501.75368 #### [facility] [address] [place], [place], [address] T4 Free Directon 05-14-2025 T4 FREE DIRECT 1.20 ng/dL Normal 0.76-1.46 [facility] Comment on above: Performed By: #### L 500.4050, L501.9520, L506.0400, L500.4100, L100.0100, L501.85429 ####[facility] [address] [place], [address] Thyroid Stim Hormone (TSH)on 05-14-2025 TSH 0.900 uIU/mL Normal 0.300-4.200 [facility] Comment on above: Performed By: #### L 500.4050, L501.9520, L506.0400, L500.4100, L100.0100, L501.05281 ####[facility] [address] [place], [place], [address] [employer] Cast Die Maker Office Visit Reporton 05-06-2025 Die Cast Die Maker Office Visit Report [facility]'[address], [address] [place] [address] OFFICE VISIT Date of Service: 05/06/25 MR#: [id number] Acct: [id number] Name: CLAU SMILEY Rep #: [id number] : 1970 Provider: Dr. 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 Is patient in pain?: No Allergies No Known Allergies Allergy (Verified 05/06/25 14:02) Medications ???Medication ???Instructions ???Recorded ???Confirmed ???Type alprazolam 0.5 mg tablet (Xanax) 0.5 mg PO TID PRN anxiety 12/14/19 05/06/25 History cholecalciferol (vitamin D3) 1,250 50,000 unit PO .[id number] 12/14/19 05/06/25 History mcg (50,000 unit) capsule omeprazole 40 mg capsule,delayed 40 mg PO PRN PRN Indigestion 12/3105/06/25 History release diltiazem HCl 180 mg 360 mg PO DAILY 09/08/22 05/06/25 History capsule,extended release 24 hr atomoxetine 25 mg capsule 25 mg PO ONCE 05/06/25 05/06/25 Hi story (Strattera) estradiol 0.01% (0.1 mg/gram) 1 g vaginal 2XW 90 days #42.5 gram s 05/06/25 05/06/25 Rx vaginal cream mometasone 0.1 % topical cream 1 applic topical QDAY PRN 05/06/25 05/06/25 History thyroid (pork) 60 mg tablet 112 mg PO DAILY 05/06/25 05/06/25 History (Geyser Thyroid) Post menopausal: No Patient : No : No PFSH Medical History Uterine polyp Hemorrhoids Acid reflux Diarrhea Constipation Bloating Abdominal pain Depression with anxiety Hypertension Arthritis History of back problems Thyroid disease Surgical History History of laparoscopic cholecystectomy History of tubal ligation Family History Grandmother Arthritis Colon cancer Grandmother CVA (cerebral vascular accident) Mother Arthritis Cancer Hypertension Father Hypertension Uncle CVA (cerebral vascular accident) Social History Smoking Status: Current every day smoker tobacco type: cigarettes alcohol intake: never substance use type: does not use caffeine: Yes what type of physical activity do you participate in: none seatbelt use: always do you feel safe at home: Yes additional social history: [email or web address] at [employer] Patient works at [employer] History 3 Elective abortions Hx Para 2 Spontaneous abortions Hx # Term Pregnancies Ectopic pregnancies Hx # Pregnancies Multiple births # of living children 2 HPI Encounter for routine gynecological examination Details: CLAU SMILEY is a 55 year old who presents for annual exam. pt had a pessary placed by Dr. Reid recently. She is not happy with the type of pessary and would like to try something else. Last PAP: [address] Reid. History of abnormal PAP: no Last mammogram: April 2024, next one scheduled for May History of abnormal mammogram: no Colon cancer screening: states is up to date Other preventative health care screenings: followed by pcp Female Reproductive History Questions: sexually active: Yes, dyspareunia: No and PCB: No Menopausal Symptoms: No hot flashes, No night sweats, No weight change, No mood changes, No difficulty concentrating, No sleep problems and No change in libido ROS Const Constitutional: Reports as per HPI; Denies fatigue, increased appetite, poor appetite, night sweats, weight gain or weight loss Cardio Card: Denies chest pain Resp Resp: Denies cough or dyspnea GI GI: Reports as per HPI; Denies abdominal pain, bloating, constipation, nausea or vomiting : Reports as per HPI and other; Denies difficulty voiding, dysuria, hematuria, hot flashes, nipple discharge, pelvic pain, prolapse symptoms, urinary frequency, urinary incontinence, urinary urgency, vaginal discharge, vaginal dryness, vaginal odor or vaginal pruritus Skin Skin/Breast: Denies changing lesions, breast mass, breast pain, breast skin changes or nipple discharge Psych Psych: Denies anxiety, change in libido, depression or difficulty concentrating Exam Const General: cooperative, healthy appearing, comfortable, no acute distress, well developed and well groomed HENMT Head: normal to inspection and normocephalic Ears: hearing grossly normal bilaterally and external ears normal Nose: external nose normal Face and sinus: normal facial exam Neck Neck: normal visual inspection, full ROM and no lymphadenopathy Thyroid: thyroi (more content not included)... Normal [facility] Inital Evaluation (1) - PTon 04-22-2025 Inital Evaluation (1) - PT [facility] [address] [place] [address] / REHABILITATION SERVICES INITIAL EVALUATION MR#: [id number] Acct: [id number] Name: CLAU SMILEY Rep #: [id number] : 1970 55 From: Sandra Henriquez DPT Referring Dr.: Dr. Huma Alves DO Status: REG R CR Insurance: [employer] SELF PAY INSURANCE Patient's Visit Information Visit Information Visit Information: CLAU SMILEY is a 55 year old F referred to Physical Therapy by Dr. Huma Alves DO with a diagnosis of Lumbar Pain. Date of Evaluation: 04/22/25 Physical Therapist: Sandra Henriquez DPT Visit Plan Frequency: 1x/Week Duration: 4 Weeks Plan: 1x a week for 4 weeks for core strength/stabilizat ion program for HEP- give handouts each visit HEP Given IE: TA contraction, prone prop, bridge, clams Subjective Subjective: Patient reports that she started to have really bad groin pain and left hip pain. She just went and got the [employer] shoes with arch support- she was taping her arches and that would help the pain go away. She has pain on the outside of the hip that when she lays on them it really bothers her. She had x-rays taken. She needs exercises that she can do at home. Has always had sciatic problems that have been intermittent. In Jul she walked the fair for 8 hours- got into [facility] for massage therapy and its never gotten back to 100%. The left side of the back is more sore- she can't pinpoint it until someone starts to put pressure on it. Describes the pain as achy- the back is achy unless you hit the right spot. Getting up/down or moving- its worse until she gets moving then it starts hurting again. Work: she sits- gets up/down as often as she can. No pain that radiates below the knees currently but has on/off. She has N/T in her feet when she sits but they are sore when she moves. The groin pain was sharp and shooting and would almost knock her over. Agg: after picking up her grandson Eases: Prerna, wrapping her feet. She was just wrapping her arch. Sleep: disturbed- due to being on the right and left sides. Active with her life but does not exercise. She has done massage therapy but the pain was coming right back- SKTC and cat/cow and bridge (that is more uncomfortable but helps when she gets through it). No loss or change in bowel or bladder from the back or hip/pain. PMHx/Meds: see list in chart. Objective Objective: Posture: forward head, rounded shoulders- can correct but does not maintain Gait: good arm swing and trunk rotation HR/TR: able but reports increased tightness with TR bilateral SLS: Right: 5 seconds Left: 1-2 seconds then LOB increased pelvic sway bilaterally ROM: Lumbar: WNL reports increased discomfort and tightness with Sidebend to the left. LE: bilateral WNL Strength: Core: poor, Hip: Left: 4/5 throughout flexion/extn/abd, 4-/5 IR/ER Right: 4/5 throughout Knee: 5/5 Ankle: 5'5 Flex: HS: Left: severe Right: moderate Gastroc: moderate bilateral Sensation: WNL to gross touch bilateral Flexion/Extn: no change in s/s with repetitive testing, Dural Signs: negative Special Tests L/S Slump test left side: Negative L/S Slump test right side: Negative L/S Left Straight Leg Raise: Negative L/S Right Straight Leg Raise: Negative R Hip Scour: Negative R Hip SAPNA - Intraarticular Pathology: Negative R Hip FADDIR - Labrum: Negative L Hip Scour: Negative L Hip SAPNA - Intraarticular Pathology: Negative L Hip FADDIR - Labrum: Negative Balance/Special Test Scores Oswestry Low Back Score: 20 Goals Goal 1:: Patient will be I with HEP and progression Goal Time Frame: 4-6 Weeks Goal 2:: Patient will maintain proper posture t/o tx session to demo increased core s/s Goal Time Frame: 4-6 Weeks Goal 3:: Patient will SLS for 15 sec without pelvic sway or LOB Goal Time Frame: 4-6 Weeks Goal 4:: Patient will report 80% improvement Goal Time Frame: 4-6 Weeks Rehabilitation Potential Physical Therapy Diagnosis: Patient presents with decreased core strength/stabilizat ion, flex and muscular endurance leading to poor posture and increased pain with ADL's. Rehabilitation Potential: Fair Anticipated Interventions Patient/Client Instruction: Educate patient on: Benefits of Fitness Program Therapeutic Exercise to Include: Strength training, Endurance training, Balance training, Coordination, Agility training, Body mechanics, Postural training, Flexibilty training, Gait and locomotor training, Neuromotor development, Dynamic Lumbar Stabilization and Scapular Strength/Stabilizat ion For the Purpose of:: To improve muscle performance and motor function Cryotherapy (ice pack, ice massage): Yes Thermo therapy (hot pack): Yes Text: Thank you for the opportunity to evaluate your patient. For Medicare and Medicare HMO plans, please review the plan of care and approve it. It (more content not included)... Normal [facility] HIP, UNI W/ Pelvis 2-3 Views on 04-10-2025 HIP, UNI W/ Pelvis 2-3 Views [facility] Services [address] [place] [address] HIP, UNI W/ Pelvis 2-3 Views MR#: [id number] Acct: [id number] Name: CLAU SMILEY Rep #: [id number] : 1970 F 55 From: Abdirahman Montilla MD PCP: Dr. Huma Alves DO Status: REG CLI Study: HIP, UNI W/ Pelvis 2-3 Views Date of Exam: Exam# [id number] Ordering Dr: Huma Alves DO PROCEDURE: HIP, UNI W/ PELVIS 2-3 VIEWS 04/10/2025 REASON FOR EXAM: LEFT HIP PAIN, LOW BACK PAIN TECHNIQUE: AP pelvis and two views left hip, 3 total images COMPARISON: None available FINDINGS: Bilateral symmetric appearing SI joints and pubic symphysis appear within limits. Bilateral pelvic tubal ligation clips. The joint spaces appear within limits. No fracture or dislocation. RAD/HIP, UNI W/ Pelvis 2-3 Views IMPRESSION: Study appears within limits. Reading Location: [facility] CC: Dr. Huma Alves DO Supervisor Wound: Signed Normal [facility] L/S Spine Min 4 Viewson 03-15 L/S Spine Min 4 Views [facility] [address] [place], [place] [address] L/S Spine Min 4 Views MR#: [id number] Acct: [id number] Name: CLAU SMILEY Rep #: [id number] : 1970 F 55 From: Abdirahman Montilla MD PCP: Dr. Huma Alves DO Status: REG CLI Study: L/S Spine Min 4 Views Date of Exam: 04/10/25 Exam# [id number] Ordering Dr: Huma Alves DO PROCEDURE: L/S SPINE MIN 4 VIEWS 04/10/2025 REASON FOR EXAM: LEFT HIP PAIN, LOW BACK PAIN TECHNIQUE: Four views; AP, bilateral oblique and lateral COMPARISON: None available FINDINGS: 5 [id number] lumbar vertebral body types identified. Rightward curvature, scoliosis. No evidence of spondylolysis. No fracture or malalignment. L2-3 mild disc space narrowing and degenerative endplate changes L3-4 mild disc space narrowing and degenerative endplate changes L4-5 mild disc space narrowing RAD/L/S Spine Min 4 Views IMPRESSION: Mild spondylosis/discoge kiera change as above. Reading Location: [facility] CC: Dr. Huma Alves DO Supervisor Wound: Signed Normal [facility] Free T3on 09-27-2024 Free T3 [Mass/Vol] 2.7 pg/mL Normal 2.18-3.98 [facility] Comment on above: Performed By: #### L [id number], L501.9520, L506.0400 #### [facility] [address] [place] [address] [place], [address] T4 Free Directon 09-27-2024 T4 FREE DIRECT 1.32 ng/dL Normal 0.76-1.46 [facility] Comment on above: Performed By: #### L 501.35798, L501.9520, L506.0400 #### [facility] [address] [place], [address] Thyroid Stim Hormone (TSH)on 09-27-2024 TSH 0.577 uIU/mL Normal 0.358-3.740 [facility] Comment on above: Performed By: #### L 501.59450, L501.9520, L506.0400 #### [facility] [address] [place], [address] [employer] Cytology Reporton 2023 [employer] Cytology Report . Pathology Reports Accession: Collected Date/Time: Received Date/Time: Pathologist: [id number] 07/03/2024 15:58 EDT 07/04/2024 18:00 EDT [employer] Cytology Report SPECIMEN: Specimen Description: Liquid Prep w/ HPV Specimen: Cervical Screening or Diagnostic: Screening RELEVANT HISTORY: LMP: postmenopausal SPECIMEN ADEQUACY: SATISFACTORY FOR EVALUATION Endocervical/Transf ormational zone component present INTERPRETATION/RESU LTS: NEGATIVE FOR INTRAEPITHELIAL LESION OR MALIGNANCY HIGH RISK HPV TESTING: Event Code Result HPV Interp See Interp HPVN HPV Interp Text: High Risk HPV Typing: NEGATIVE HPV types 16, 18, 31, 33, 35, 39, 45, 51, 52, 56, 58, 59, 66 and 68 DNA were undetectable or below the pre-set threshold. The james High-Risk HPV DNA Test is not intended for use as a screening device for Pap normal women under age 30 and is not intended to substitute for regular Pap screening. The james High-Risk HPV DNA Test is designed to augment existing methods for the detection of cervical disease and should be used in conjunction with clinical information derived from other diagnostic and screening tests, physical examinations and full medical history in accordance with appropriate patient management procedures. NOTE: A negative result does not preclude the presence of HPV infection because results depend on adequate specimen collection, absence of inhibitors and sufficient DNA to be detected. As of: 07/09/24 13:02 EDT COMMENT: This Pap Test was successfully processed and evaluated with the assistance of the [employer] ThinPrep Test Imaging System. Pathology Reports Accession: Collected Date/Time: Received Date/Time: Pathologist: [id number] 07/03/2024 15:58 EDT 07/04/2024 18:00 EDT Electronically Signed by Pathology report verified by [facility] Screened by: KK Electronically signed by Christin ENAMORADO (ASCP) Sign-Out Date: 07/09/2024 13:02 Performing Lab: [facility], [address] [place] [address] Pathology Dept Disclaimer The Pap test is a screening test for cervical cancer. As evidenced by published data, it is subject to both inherent false negative and false positive results. Your patient's results should be interpreted in context with pertinent clinical history including gynecological examination. Normal [facility] ([place]) HPVon 07-09-2024 HPV Interp Normal See Interp HPVN [facility] ([place]) Comment on above: Order Comment: Order placed by AP_HPV_ORDER rule from [id number] Result Comment: High Risk HPV Typing: NEGATIVE HPV types 16, 18, 31, 33, 35, 39, 45, 51, 52, 56, 58, 59, 66 and 68 DNA were undetectable or below the pre-set threshold. The james High-Risk HPV DNA Test is not intended for use as a screening device for Pap normal women under age 30 and is not intended to substitute for regular Pap screening. The james High-Risk HPV DNA Test is designed to augment existing methods for the detection of cervical disease and should be used in conjunction with clinical information derived from other diagnostic and screening tests, physical examinations and full medical history in accordance with appropriate patient management procedures. NOTE: A negative result does not preclude the presence of HPV infection because results depend on adequate specimen collection, absence of inhibitors and sufficient DNA to be detected. See Interp HPVN Performed By: #### H PV #### [place] [address] HPV Source Cervix Normal [facility] ([place]) Comment on above: Order Comment: Order placed by AP_HPV_ORDER rule from [id number] Performed By: #### H PV #### [place] [address] No Panel InformationOrdered By: Jayshree Branham on 07-03-2024 Affirm Pathogens DNA Direct Probe Negrita species DNA Probe Negative Gardnerella vaginalis DNA Probe Negative Trichomonas vaginalis DNA Probe Negative [facility] Urine Cultureon 06-29-2024 [facility] Mixed Gram Positive Organisms Julian Count 11,000-25,000 MIXC Mixed contaminants. Submit a new specimen if indicated. Normal [facility] Comment on above: Performed By: #### M 100.2200 ####[facility] [id number] [facility] [address] [place], [place], [id number] Urine Cultureon 06-05-2024 [facility] Presumptive E. coli Julian Count 25,000-50,000 Presumptive E. coli: REACTION Ampicillin Islt KHADRA <=2 S Ampicillin+Sulbac Islt KHADRA <=2 S ceFAZolin Islt KHADRA <=4 S Cefepime Islt KHADRA <=0.12 S cefTRIAXone Islt KHADRA <=0.25 S Ciprofloxacin Islt KHADRA <=0.25 S Ertapenem Islt KHADRA <=0.12 S B-Lactamase Extended Susc Islt NEG Gentamicin Islt KHADRA <=1 S Imipenem Islt KHADRA <=0.25 S levoFLOXacin Islt KHADRA <=0.12 S Nitrofurantoin Islt KHADRA <=16 S Pip+Tazo Islt KHADRA <=4 S Tobramycin Islt KHADRA <=1 S TMP SMX Islt KHADRA <=20 S Normal [facility] Comment on above: Performed By: #### M 100.2200 ####[facility] [id number] [place], [place], [id number] Emergency Department Summary on 06-03-2024 Emergency Department Summary [facility] Medical Records Department [address] [place] [address] Emergency Department Summary 06/03/24 MR#: [id number] Acct: [id number] Name: CLAU SMILEY A Rep #: [id number] : 1970 54 From: Marjorie Kelly DO PCP: Dr. Huma Alves, DO Status:DEP ER Location: ED HPI HPI - Female History of Present Illness Chief Complaint: Complaint Detail of Chief Complaint: Dysuria and frequency and pelvic pressure Informant: patient Narrative Narrative: Patient presents to the emergency department with complaint of dysuria and frequency and pelvic pressure. She had similar symptoms 2 years ago and was treated with Pyridium and an antibiotic and symptoms resolved. Patient denies fevers chills or sweats. She denies back pain. [facility] Medical History Abdominal pain Acid reflux Arthritis Bloating Constipation Depression with anxiety Diarrhea Hemorrhoids History of back problems Hypertension Thyroid disease Uterine polyp Home Medications ???Medication ???Instructions ???Recorded ???Last Taken ???Type alprazolam 0.5 mg tablet (Xanax) 0.5 mg PO TID PRN anxiety 12/14/19 01/02/20 History cholecalciferol (vitamin D3) 1,250 50,000 unit PO .[id number] 12/14/19 Unknown History mcg (50,000 unit) capsule omeprazole 40 mg capsule,delayed 40 mg PO PRN PRN Indigestion 12/31/19 01/02/20 History release diltiazem HCl 180 mg 360 mg PO DAILY 09/08/22 Unknown History capsule,extended release 24 hr thyroid (pork) 60 mg tablet 125 mg PO DAILY 09/08/22 Unknown History ([place] Thyroid) cephalexin 500 mg capsule 500 mg PO TID 7 days #21 caps 12/31/22 Unknown Rx phenazopyridine 200 mg tablet 200 mg PO TID PRN pain 3 days #9 12/31/22 Unknown Rx (Pyridium) tabs sertraline 50 mg tablet (Zoloft) 50 mg PO DAILY 03/17/23 Unknown History phenazopyridine 200 mg tablet 200 mg PO BID PRN PRN Pain #10 tabs 06/03/24 Unknown Rx (Pyridium) sulfamethoxazole 800 1 tab PO BID #14 TABLETS 06/03/24 Unknown Rx mg-trimethoprim 160 mg tablet Allergy/AdvReac Type Severity Reaction Status Date / Time No Known Allergies Allergy Verified 07/21/24 18:42 Family History Grandmother Arthritis Colon cancer Grandmother CVA (cerebral vascular accident) Mother Arthritis Cancer Hypertension Father Hypertension Uncle CVA (cerebral vascular accident) Surgical History History of laparoscopic cholecystectomy History of tubal ligation Social History Smoking Status: Current every day smoker tobacco type: cigarettes alcohol intake: never substance use type: does not use caffeine: Yes what type of physical activity do you participate in: none seatbelt use: always do you feel safe at home: Yes additional social history: [employer] at [employer] Patient works at [employer] ROS ROS ED Review of Systems ROS Unobtainable: other Constitutional Constitutional ED: Reports lethargy; Denies chills, fever(s), sweats or weight loss Eyes Eyes: Denies blurry vision, change in vision or diplopia ENT ENT ED: Denies rhinorrhea or sore throat Cardiovascular Cardiovascular: Denies chest pain, orthopnea or racing heartbeat Respiratory/Chest Respiratory/Chest: Denies cough, dyspnea, dyspnea on exertion, orthopnea or sputum Gastrointestinal Gastrointestinal: Reports abdominal pain; Denies diarrhea, nausea or vomiting Genitourinary Genitourinary ED: Reports dysuria and urinary frequency; Denies hematuria Musculoskeletal Musculoskeletal: Denies arthralgias, back pain, myalgias or neck pain Integumentary Denies abscess, Abrasions or rash Neurologic Neurologic: Denies headache(s) or weakness Psychiatric Psychiatric: Denies anxiety, depression or suicidal thoughts Endocrine Endocrinology: Denies polydipsia, polyphagia or polyuria Hematologic/Lymphat ic Hematologic/Lymphat ic: Denies easy bleeding, easy bruising or lymphadenopathy Allergic/Immunologi c Allergic/Immunologi c ED: Denies mouth swelling, tongue swelling or urticaria EXAM Physical Exam Const Vital Signs: 06/03/24 18:42 Temperature 97.8 F Temperature Source Temporal Pulse Rate 118 H Respiratory Rate 16 Blood Pressure 144/76 H Blood Pressure Mean 98 Pulse Ox 100 Oxygen Delivery Method Room Air Positive well nourished and well developed General Appearance ED: well developed and NAD HEENT Reports TM's clear and moist mucous membranes normocephalic and atraumatic; Negative for trauma or tenderness Tympanic Membrane ED: Yes TM's clear Eyes PERRL and EOMs intact bilaterally General Eye ED: Negative for pale conjunctiva or scleral ic (more content not included)... Normal [facility] Urinalysis, Completeon 06-03 BACTERIA 1+ /hpf Normal None Seen [facility] Comment on above: Order Comment: CLEAN CATCH Performed By: #### L 400.0001 #### [facility] [address] [place], [address] EPI,SQUAMOUS 0-5 SEEN Normal 5-10 [facility] Comment on above: Order Comment: CLEAN CATCH Performed By: #### L 400.0001 #### [facility] [address] [place], [address] RBC 25-50 SEEN Normal 0-5 [facility] Comment on above: Order Comment: CLEAN CATCH Performed By: #### L 400.0001 #### [facility] [address] [place], [address] WBC >100 SEEN Normal 0-5 [facility] Comment on above: Order Comment: CLEAN CATCH Performed By: #### L 400.0001 #### [facility] [address] [place], [address] Mucus Ql (Urine sed) 0 SEEN Normal [facility] Comment on above: Order Comment: CLEAN CATCH Performed By: #### L 400.0001 #### [facility] [address] [place], [address] Absolute lymphocyte countOrd ered By: Dr. Alves on 01-12-2023 Lymphocytes Auto (Unsp spec) [#/Vol] 1.90 10*3/uL 0.83-4.51 [facility] Basophil percentageOrdered B y: Dr. Alves on 01-12-2023 Basophils/100 WBC (Bld) 0.5 % 0-1 [facility] Bilirubin [Mass/Vol] 0.30 mg/dL 0.20-1.00 [facility] Comment on above: For patients on eltr ombopag therapy, use of Dimension [place] TBIL is not recommended. Chloride [Moles/Vol] 107 mmol/L 98-107 [facility] Cholesterol [Mass/Vol] 159 mg/dL <200 [facility] Comment on above: <200 mg/dL Desirable 200-240 mg/dL Borderline >240 mg/dL High Risk Eosinophils/100 WBC (Bld) 0.8 % 0-5 [facility] Glucose [Mass/Vol] 102 mg/dL 74-106 [facility] Comment on above: Fasting Glucose resu lt from 100 to 125 mg/dL suggests IMPAIRED HOMEOSTASIS per A.D.A. criteria. Neutrophils (Bld) [#/Vol] 6.9 10*3/uL 2.0-7.7 [facility] Neutrophils/100 WBC (Bld) 71.6 % 47-70 [facility] Potassium [Moles/Vol] 4.3 mmol/L 3.5-5.1 [facility] Protein [Mass/Vol] 7.5 g/dL 6.4-8.2 [facility] Sodium [Moles/Vol] 137 mmol/L 136-145 [facility] Triglyceride [Mass/Vol] 111 mg/dL <199 [facility] Comment on above: The drugs N-Acetylcy steine and Metamizole may falsely depress this assay.Serum Triglycerides Reference Interval Normal <150 mg/dL Borderline high 150 - 199 mg/dL High 200 - 499 mg/dL Very High > or = 500 mg/dL WBC (Bld) [#/Vol] 9.6 10*3/uL 4.4-11.0 [facility] Blood erythrocytes count (nu mber/volume)Ordered By: Dr. Alves on 01-12-2023 RBC (Bld) [#/Vol] 4.37 10*6/uL 4.2-5.4 [facility] Blood hemoglobin measurement (mass/volume)Ordered By: Dr. Alves on 01-12-2023 Hemoglobin (Bld) [Mass/Vol] 12.3 g/dL 12.0-15.0 [facility] Blood lymphocytes/100 leukoc ytesOrdered By: Dr. Alves on 01-12-2023 Lymphocytes/100 WBC (Bld) 19.8 % 19-41 [facility] Blood monocytes/100 leukocyt esOrdered By: Dr. Alves on 01-12-2023 Monocytes/100 WBC (Bld) 6.7 % 0-10 [facility] Blood platelet mean volumeOr dered By: Dr. Alves on 01-12-2023 Platelet mean volume (Bld) [Entitic vol] 10.1 fL 6.2-12.0 [facility] Determination of erythrocyte mean corpuscular volume (MCV)Ordered By: Dr. Alves on 01-12-2023 MCV (RBC) [Entitic vol] 91.1 fL 81-99 [facility] Hematocrit Auto (Bld) [Volum e fraction]Ordered By: Dr. Alves on 01-12-2023 Hematocrit (Bld) [Volume fraction] 39.8 % 37-47 [facility] - Chemistry and C hemistry - challengeOrdered By: Dr. Alves on 01-12-2023 ALP [Catalytic activity/Vol] 105 U/L 45-117 [facility] ALT [Catalytic activity/Vol] 24 U/L 13-56 [facility] CO2 [Moles/Vol] 23.0 mmol/L 21.0-32.0 [facility] Free T4 [Mass/Vol] 1.18 ng/dL 0.76-1.46 [facility] Globulin (S) [Mass/Vol] 3.8 g/dL 2.2-4.2 [facility] Urea nitrogen/Creatinine [Mass ratio] 12.0 mg/mg 10-20 [facility] - Hematology and Cell countsOrdered By: Dr. Alves on 01-12-2023 Erythrocyte distribution width (RBC) [Entitic vol] 49.7 fL 35.1-43.9 [facility] Erythrocyte distribution width (RBC) [Ratio] 14.8 % 11.6-14.6 [facility] Immature granulocytes/100 WBC (Bld) 0.600 % 0.0-0.9 [facility] Comment on above: IG% - Immature Granu locytes (promyelocytes, myelocytes and metamyelocytes) > 1% indicates that a LEFT SHIFT is Present. MCH (RBC) [Entitic mass] 28.1 pg 27.0-32.0 [facility] Nucleated RBC/100 W[facility] (Bld) [Ratio] 0 % 0[facility] [Mass/Vol]Or dered By: Dr. Alves on 01-12-2023 MCHC (RBC) [Mass/Vol] 30.9 g/dL 32-36 [facility] No Panel InformationOrdered By: Dr. Alves on 01-12-2023 Estimated GFR (MDRD) Amer 82 mL/min >60 [facility] Comment on above: GFR Calc Estimated GFR (MDRD) Non-Af Amer 68 mL/min >60 [facility] Comment on above: Non- GFR Calc Free Triiodothyronine (T3) pg/dL 2.7 pg/mL 2.18-3.98 [facility] Thyroid Stimulating Hormone (TSH) 0.84 uIU/mL 0.358-3.74 [facility] Platelets bldOrdered By: Dr. Alves on 01-12-2023 Platelets (Bld) [#/Vol] 339 10*3/uL 150-450 [facility] Serum or plasma albumin pam urement (mass/volume)Ordered By: Dr. Alves on 01-12-2023 Albumin [Mass/Vol] 3.7 g/dL 3.2-5.0 [facility] Serum or plasma albumin/glob ulin mass ratioOrdered By: Dr. Alves on 01-12-2023 Albumin/Globulin [Mass ratio] 1.0 {ratio} 0.9-2.4 [facility] Serum or plasma calcium pam urement (mass/volume)Ordered By: Dr. Alves on 01-12-2023 Calcium [Mass/Vol] 8.5 mg/dL 8.5-10.1 [facility] Serum or plasma cholesterol in HDL measurement (mass/volume)Ordered By: Dr. Alves on 01-12-2023 Cholesterol in HDL [Mass/Vol] 42 mg/dL >40 [facility] Comment on above: The drugs N-Acetylcy steine and Metamizole may falsely depress this assay. Reference Range HDL <40 mg/dL Low HDL Cholesterol HDL >or= 60 mg/dL High HDL Cholesterol Serum or plasma cholesterol in VLDL measurement (mass/volume)Ordered By: Dr. Alves on 01-12-2023 Cholesterol in VLDL [Mass/Vol] 22 mg/dL 5-40 [facility] Serum or plasma creatinine m easurement (mass/volume)Ordered By: Dr. Alves on 01-12-2023 Creatinine [Mass/Vol] 0.92 mg/dL 0.55-1.02 [facility] Comment on above: The validity of the calculated GFR & GFRAA in patients over 70 years has not been determined. Clinical correlation is essential. Serum or plasma low density lipoprotein (LDL) cholesterol measurement (mass/volume)Ordered By: Dr. Alves on 01-12-2023 Cholesterol in LDL [Mass/Vol] 95 mg/dL 0-130 [facility] Serum or plasma urea nitroge n measurement (mass/volume)Ordered By: Dr. Alves on 01-12-2023 Urea nitrogen [Mass/Vol] 11 mg/dL 7-18 [facility] Thin prep Papanicolaou smear with manual screeningOrdered By: Dr. Alves on 01-12-2023 Thin prep Papanicolaou smear with manual screening 12 U/L 15-37 [facility] Thin prep Papanicolaou smear with manual screening 7 5-15 [facility] Culture, urineOrdered By: Ani Guardado on 01-02-2023 Bacteria identified Cx Nom (U) Presumptive E. coli [facility] Basophil percentageOrdered B y: ED PROVIDER on 12-30-2022 Basophil percentage >100 SEEN /hpf 0-5 [facility] Bilirubin Test strip Ql (U)O rdered By: ED PROVIDER on 12-30-2022 Bilirubin Ql (U) Negative Negative [facility] Ketones Test strip Ql (U)Ord ered By: ED PROVIDER on 12-30-2022 Ketones Ql (U) 5 mg/dl Negative [facility] Mucus LM Ql (Urine sed)Order ed By: ED PROVIDER on 12-30-2022 Mucus Ql (Urine sed) 0 SEEN /hpf [facility] Nitrite Test strip Ql (U)Ord ered By: ED PROVIDER on 12-30-2022 Nitrite Ql (U) Positive Negative [facility] Protein Test strip Ql (U)Ord ered By: ED PROVIDER on 12-30-2022 Protein Ql (U) 100 mg/dl Negative [facility] Squamous epithelial cells de tection in urine sediment by light microscopyOrdered By: ED PROVIDER on 12-30-2022 Epithelial cells.squamous LM Ql (Urine sed) 0-5 SEEN /hpf 5-10 [facility] Urine blood detectionOrdered By: ED PROVIDER on 12-30-2022 RBC Ql (U) 250 /ul Negative [facility] RBC Ql (U) 50-100 SEEN /hpf 0-5 [facility] Urine clarityOrdered By: ED PROVIDER on 12-30-2022 Clarity (U) Sl. Cloudy Clear [facility] Urine color determinationOrd ered By: ED PROVIDER on 12-30-2022 Color (U) Yellow Yellow [facility] Urine glucose detectionOrder ed By: ED PROVIDER on 12-30-2022 Glucose Ql (U) Normal mg/dl Normal [facility] Urine leukocyte esterase det ection by dipstickOrdered By: ED PROVIDER on 12-30-2022 Leukocyte esterase Test strip Ql (U) 500 /ul Negative [facility] Urine pHOrdered By: ED PROVI DREW on 12-30-2022 pH (U) 5.0 [pH] 5.0 - 8.0 [facility] Urine sediment bacteria coun t by microscopy (number/high power field)Ordered By: ED PROVIDER on 12-30-2022 Bacteria LM.HPF (Urine sed) [#/Area] 1 /[HPF] None Seen [facility] Urine specific gravity measu rementOrdered By: ED PROVIDER on 12-30-2022 Specific gravity (U) [Rel density] 1.025 1.002-1.030 [facility] Urobilinogen Auto test strip Ql (U)Ordered By: ED PROVIDER on 12-30-2022 Urobilinogen Ql (U) 1 mg/dl Normal [facility] CNCOon 12-22-2020 [facility] HNO ID: [id number] Author: Mammography Coordinator Service: ? Author Type: Physician Type: Letter Filed: 12/23/2020 11:35 PM Note Text: December 22, 2020 PID: [id number] Clau Smiley [address] [place] [address] Dear Ms. Smiley, We are pleased to inform you that the results of your recent breast imaging exam on 12/22/2020 are normal. Early detection of cancer is very important. We also understand recommendations regarding breast cancer screening are controversial. Please discuss with your primary care provider which strategy is best for you and whether a mammogram is right for you. Your imaging studies and report will be kept on file at [facility] as part of your permanent medical record and are available for your continuing care. Thank you for allowing us to help in meeting your health care needs. Sincerely, Dr. Mckeon Interpreting Radiologist [facility] (Normal over 40) Normal [facility] SCREENINGon 12-22-2020 [facility] SCREENING * * *Final Report* * * DATE OF EXAM: Dec 22 2020 2:35PM [id number] - [facility] SCREENING / PROCEDURE REASON: Encounter for screening mammogram for malignant neoplasm of breast * * * * Physician Interpretation * * * * RESULT: #[id number] - [facility] SCREENING BILATERAL DIGITAL SCREENING MAMMOGRAM WITH CAD: 12/22/2020 HISTORY: Screening Mammogram - patient reports NO breast symptoms /priors available for comparison. RESULT: TECHNIQUE: The study was acquired using full field digital technology and interpreted from soft copy. Current study was also evaluated with a Computer Aided Detection (CAD). Comparison is made to exams dated: 07/26/2019 mammogram, 07/04/2018 mammogram, 05/23/2017 mammogram, and 05/21/2016 mammogram - [facility]. There are scattered fibroglandular elements in both breasts. No significant masses, calcifications, or other findings are seen in either breast. There has been no significant interval change. IMPRESSION: NEGATIVE There is no mammographic evidence of malignancy. A 1 year screening mammogram is recommended. Sera Mckeon M.D., lp/rudi:12/22/2020 15:51:22 Elevated Work Platform Operator(s): Reny Suarez RT(R)(M), [facility] letter sent: Normal over 40 Mammogram BI-RADS: 1 Negative Multiple national specialty organizations have released breast cancer screening guidelines for women at average risk for developing breast cancer - guidelines that are based on both evidence and opinion, yet differ on when to start and how often to screen for breast cancer. With representation from Breast Imaging, Internal Medicine, Women's Health, Family Medicine, and Medical/Surgical Oncology, the [facility] has carefully reviewed the data and reached the following consensus: 1) All women should engage in shared decision-making with their providers to decide when to start and how often to screen; 2) All women should have the opportunity to start screening mammography at age 40; 3) For women ages 45-55, we recommend annual screening mammograms; 4) For women ages 55 and over, we support both the transition from an annual to a biennial interval if this aligns more with patient's values and preferences, or continuation with annual screening; 5) All women should discuss with their providers when to stop screening mammograms. Supervisor Wound: Rudi Transcribe Date/Time: Dec 22 2020 1:58P Dictated by: SERA MCKEON MD This examination was interpreted and the report reviewed and electronically signed by: SERA MCKEON MD on Dec 22 2020 3:51PM EST [id number] Normal [facility] Trina 12-19-2020 ABHIJIT Telephone (OBGYWM) ---- CLAU SMILEY ([id number]) 1970 F Date Time Provider Department 12/19/20 EMILY CARRILLO ([facility]) OBGYWM During your visit today, we recorded the following information about you: Marta Anaya 12/19/2020 2:26 PM Signed Pt called in wanting an order for a Mammogram for insurance purposes. Please place the order and then schedule as soon as possible. Thank you, Marta Huizar RN 12/19/2020 2:56 PM Signed Patient last seen for annual exam and mammogram on 07/26/19. See below. Please file pended mammogram order. Ramya Bustillo 12/19/2020 4:44 PM Signed Patient scheduled 28 Allergies As of Date: 12/19/2020 (No Known Allergies) Date Reviewed: 12/12/2019 Reviewed by: Emily Carrilol - Fully Assessed Reason for Visit: Order request [Other] Primary Visit Diagnosis:Encounter for screening mammogram for malignant neoplasm of breast [Z12.31] Order(s):[facility] SCREENING [[id number]] Order #: [id number] FUTURE Prescriptions as of 12/19/2020 Sig: MULTIVITAMIN ORAL Take by mouth. OMEPRAZOLE 40 MG CAPSULE,YULY* Take 40 mg by mouth as needed* ARMOUR THYROID 90 MG TABLET Take by mouth. BIOTIN ORAL Take by mouth. VITAMIN D-3 ORAL Take 50,000 Units by mouth as* IRON ORAL Take by mouth. DILTIAZEM ER 120 MG TABLET,EX* Take 1 tablet by mouth once d* ACETAMINOPHEN 325 MG TABLET Take 1-2 tablets by mouth vernon* * ALPRAZOLAM 0.25 MG TABLET three times daily as needed. * SERTRALINE 100 MG TABLET Take 1.5 tablets by mouth onc* Problem List As Of Date 12/19/2020 Noted Resolved DERMATITIS DUE TO CHEMICALS [L25.3] 05/18/2006 Preoperative examination, unspecified [Z01.818] 08/16/2012 07/26/2019 Cervicalgia [M54.2] 11/03/2012 Shoulder pain [M25.519] 11/03/2012 Obesity [E66.9] 11/03/2012 Tobacco abuse [Z72.0] 11/03/2012 Anemia [D64.9] 04/05/2013 Biliary dyskinesia [K82.8] 06/28/2013 Chronic cholecystitis [K81.1] 07/17/2013 Encounter Status:Closed by UNRULY MARINELLI RN on 12/22/20 Normal [facility] Vital Signs Date Time Vital Sign Value Performing Clinician Faci lity 12-30-2022 22:58-0500 Body height 165.[address] Huma Alves Work Phone: [facility] 12-30-2022 22:58-0500 Body mass index (BMI) [Ratio] 33.3 kg/m2 Dr. Huma Alves Work Phone: [facility] 12-30-2022 22:58-0500 Body temperature 97.2 [degF] Dr. Huma Alves Work Phone: [facility] 12-30-2022 22:58-0500 Body weight 90.[address] Huma Alves Work Phone: [facility] 12-30-2022 22:58-0500 Diastolic blood pressure 74 mm[Hg] Dr. Huma Alves Work Phone: [facility] 12-30-2022 22:58-0500 Heart rate 106 /min Dr. Huma Alves Work Phone: [facility] 12-30-2022 22:58-0500 Respiratory rate 16 /min Dr. Huma Alves Work Phone: [facility] 12-30-2022 22:58-0500 SaO2% (BldA) [Mass fraction] 100 % Dr. Huma Alves Work Phone: [facility] 12-30-2022 22:58-0500 Systolic blood pressure 127 mm[Hg] Dr. Huma Alves Work Phone: [facility] 12-30-2022 10:57-0500 Body mass index (BMI) [Ratio] 35 kg/m2 Dr. Huma Alves Work Phone: [facility] 12-30-2022 10:57-0500 Body weight 97.[address] Huma Alves Work Phone: [facility] 12-30-2022 10:57-0500 Diastolic blood pressure 74 mm[Hg] Dr. Huma Alves Work Phone: [facility] 12-30-2022 10:57-0500 Systolic blood pressure 110 mm[Hg] Dr. Huma Alves Work Phone: [facility] 12-23-2022 05:47-0500 Body mass index (BMI) [Ratio] 35 kg/m2 Dr. Huma Alves Work Phone: [facility] 12-23-2022 05:47-0500 Body temperature 97.5 [degF] Dr. Huma Alves Work Phone: [facility] 12-23-2022 05:47-0500 Body weight 97.[address] Huma Alves Work Phone: [facility] 12-23-2022 05:47-0500 Diastolic blood pressure 83 mm[Hg] Dr. Huma Alves Work Phone: [facility] 12-23-2022 05:47-0500 Heart rate 79 /min Dr. Huma Alves Work Phone: [facility] 12-23-2022 05:47-0500 Respiratory rate 18 /min Dr. Huma Alves Work Phone: [facility] 12-23-2022 05:47-0500 SaO2% (BldA) [Mass fraction] 99 % Dr. Huma Alves Work Phone: [facility] 12-23-2022 05:47-0500 Systolic blood pressure 133 mm[Hg] Dr. Huma Alves Work Phone: [facility] 09-08-2022 08:30-0400 Body height 166.[address] Huma Alves Work Phone: [facility] Work Phone: 09-08-2022 08:30-0400 Body mass index (BMI) [Ratio] 33.6 kg/m2 Dr. Huma Alves Work Phone: [facility] 09-08-2022 08:30-0400 Body temperature 95.5 [degF] Dr. Huma Alves Work Phone: [facility] 09-08-2022 08:30-0400 Body weight 93.[address] Huma Alves Work Phone: [facility] 09-08-2022 08:30-0400 Diastolic blood pressure 70 mm[Hg] Dr. Huma Alves Work Phone: [facility] 09-08-2022 08:30-0400 Heart rate 90 /min Dr. Huma Alves Work Phone: [facility] 09-08-2022 08:30-0400 Respiratory rate 20 /min Dr. Huma Alves Work Phone: [facility] 09-08-2022 08:30-0400 SaO2% (BldA) [Mass fraction] 99 % Dr. Huma Alves Work Phone: [facility] 09-08-2022 08:30-0400 Systolic blood pressure 108 mm[Hg] Dr. Huma Alves Work Phone: [facility] Encounters Encounter Date Encounter Type Care Provider Facility Start: 05-[facility] Start: 05-22-2025 Encounter for genera l adult medical examination without abnormal findings [facility] Start: 05-14-2025 End: 05-14-2025 [facility] Start: 05-06-2025 End: 05-06-2025 [facility] Start: 04-10-2025 End: 04-10-2025 [facility] Start: 09-27-2024 End: 09-27-2024 [facility] Start: 07-03-2024 End: 07-07-2024 ambulatory JUANITA REID MD Facility:B Start: 07-03-2024 End: 07-07-2024 Outreach Lab JUANITA REID MD [facility] Start: 06-28-2024 End: 06-28-2024 [facility] Start: 06-03-2024 End: 06-03-2024 Emergency department patient visit Valerie Robin Facility:[facility] Start: 01-12-2023 End: 01-12-[address] Huma Alves Work Phone: [facility] Work Phone: Start: 01-12-2023 End: 01-12-[address] Huma Alves Work Phone: [facility]-Laboratory, Maria D Benitez [facility] Start: 12-30-2022 End: 12-31-2022 Emergency department patient visit Dr. Huma Alves Work Phone: [facility]Emergency [facility] Start: 12-30-2022 End: 12-30-[address] Huma Alves Work Phone: [facility] Start: 12-23-2022 End: 12-23-[address] [facility] Start: 10-14-2022 End: 10-14-[address] Huma Alves Work Phone: [facility] Work Phone: Start: 10-14-2022 End: 10-14-[address] Huma Alves Work Phone: [facility]-Sleep Lab Start: 09-30-2022 End: 09-30-[address] Huma Alves Work Phone: [facility] Work Phone: Start: 09-30-2022 End: 09-30-[address] Huma Alves Work Phone: [facility] Start: 09-08-2022 End: 09-08-[address] [facility] Start: 08-24-2022 End: 08-24-2022 ambulatory [facility] Work Phone: Start: 08-24-2022 End: 08-24-2022 Patient encounter procedure [facility] Start: 03-29-2022 End: 03-29-2022 Patient encounter procedure [facility]Out[facility] Breast Imaging Procedures Date Procedure Procedure Detail Performing Clinician Start: 03-29-2022 Screening mammography Cholecystectomy JUANTIA MAGAÑA MD Comment on above: 2011 Dilation and curettage LUZ ELENA REID MD Comment on above: 2014 Ligation of fallopian tube S LELE REID MD Comment on above: [address] Huma Alves Work Phone: Plan of Treatment Date Care Activity Detail Author Start: 12-31-2022 [facility] Bacteria identified in Urine by Culture Urine Culture [facility] Measurement of respi ratory function [facility] MG Breast - bilatera l Screening [facility] Patient Education UTIs Women [facility] Work Phone: Patient referral [facility] Work Phone: [facility] Immunizations Immunization Date Immunization Notes Care Provider Fa cility 02-19-2021 Covid (Pfizer) [facility] 01-29-2021 Covid (Pfizer) [facility] Payers Date Payer Category Payer Private Health Insurance [id number] 2024 Self-pay [id number] 2014 Private Health Insurance [id number] 2014 Unknown [id number] 1970 Unknown [id number] Unknown [facility] PACKAGE PLAN [id number] Unknown [id number] Unknown [id number] Unknown [id number] Unknown [id number] Unknown [id number] Unknown [id number] Unknown [id number] Unknown [id number] Social History Date Type Detail Facility Start: 09-08-2021 End: 12-30-2022 Tobacco smoking status NHIS Unknown if ever smoked [facility] Start: 04-29-2020 Cigarettes [facility] Start: 1970 Sex Assigned At Female [facility] Start: 07-03-2024 Tobacco smoking status Heavy t obacco smoker (finding) [facility] Clinical Notes 12-22-2020 to 07-05-2024 Radiology Note Date & Type Note Facility 07-05-2024 Note . MICRO - Microbiology PROCEDURE: Affirm Pathogens DNA Direct Probe [*1] SOURCE: Vaginal Fluid BODY SITE: Vaginal Wall COLLECTED DATE/TIME: 07/03/2024 15:58 EDT RECEIVED DATE/TIME: 07/04/2024 15:28 EDT START DATE/TIME: 07/04/2024 15:28 EDT FREE TEXT SOURCE: FINAL REPORTS Final Report [] Verified Date/Time/Personnel: 07/05/2024 12:03 EDT Negrita species DNA Probe Negative Gardnerella vaginalis DNA Probe Negative Trichomonas vaginalis DNA Probe Negative Performing Locations *1: This test was performed at: [facility], [address] [place] [address], [id number] , [facility] ([place]) 12-22-2020 Note HNO ID: [id number] Author: Piper (Laila) Laila Johnson Service: ? Author Type: Cook Pickled Meat Type: Progress Notes Filed: 12/22/2020 1:59 PM [...] Laila Finch December 22, 2020 1:59 PM [facility] Evaluation + Plan note Future Appointments Appointment Date:07/24/2024 02:00:00 PM Scheduled Provider:JUANITA REID MD Location:[facility] Appointment Type:[facility] Diagnostic Tests PendingHPV Screen, DNA Probe 07/03/24 Future Scheduled TestsMA Mammo Screening Bilateral w/ Jt 07/03/24BD Bone Density DEXA Axial Skeleton Adult (21 yrs or older) 07/03/24 [facility] Evaluation note No assessment inform ation available [facility] Work Phone: Evaluation note Diagnosis Onset Date PETER (obstructive sleep apnea) acute Smoking greater than 20 pack years chronic [facility] Work Phone: Evaluation note* Diagnosis Onset Date Resolution Status PETER (obstructive sleep apnea) acute Smoking greater than 20 pack years chronic PETER (obstructive sleep apnea) acute Smoking greater than 20 pack years chronic Encounter for routine gynecological examination noneactive [facility] Work Phone: Evaluation note* Diagnosis Onset Date Resolution Status PETER (obstructive sleep apnea) acute Smoking greater than 20 pack years chronic Encounter for routine gynecological examination noneactive [facility] Work Phone: Hospital course Narrative No data available for this section [facility] Hospital Discharge instructions Additional Instructions Your work-up and exam indicate you have hemorrhagic cystitis which is an infection of the bladder causing bleeding. Take the antibiotic as directed to help resolve this and if you have any further concerns or worsening of symptoms [facility] Hospital Discharge instructions No data available for this section [facility] Progress note No data available for this section [facility] Summary Purpose Family History No Family History Records Found Relationship Condition Age at Onset Recorded Date/T zia grandmother Arthritis Unknown Malignant neoplasm of colon Unknown grandmother Cerebrovascular accident (CVA) Unknown mother Arthritis Unknown Malignant neoplasm Unknown Hypertension Unknown father Hypertension Unknown uncle Cerebrovascular accident (CVA) Unknown Advance Directives No Advanced Directives Records Found Advance Directive Response Recorded Date/ Time Living Will No April 29, 2020 3:30pm Power of Community Nurse No April 29 0 3:30pm Advance Directive Response Recorded Date/ Time Living Will No April 29, 2020 2:30pm Power of Community Nurse No April 29 0 2:30pm Advance Directive Response Recorded Date/ Time Living Will No December 30 023 11:56pm Power of Community Nurse No December 30, 2022 11:56pm Chief Complaint and Reason for Visit Chief Complaint SCREENING Chief Complaint PETER Chief Complaint PETER Sleep problems PETER,NEW AUTOPAP Reason for Visit PETER (obstructive sle ep apnea) Smoking greater than 20 pack years Chief Complaint PETER Sleep problems PETER,NEW AUTOPAP MASK LEAK, MOUTH SORENESS Reason for Visit PETER (obstructive sle ep apnea) Smoking greater than 20 pack years Chief Complaint Sleep problems PETER,NEW AUTOPAP MASK LEAK, MOUTH SORENESS 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 Reason for Visit PETER (obstructive sle ep apnea) Smoking greater than 20 pack years PETER (obstructive sleep apnea) Smoking greater than 20 pack years Encounter for routine gynecological examination Chief Complaint PETER,NEW AUTOPAP MASK LEAK, MOUTH SORENESS 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 Reason for Visit PETER (obstructive sle ep apnea) Smoking greater than 20 pack years Encounter for routine gynecological examination Additional Source Comments INFORMATION SOURCE (unrecogn ized section and content) DATE CREATED AUTHOR 11/29/2021 [facility] DATE CREATED AUTHOR AUTHOR'S ORGANIZ ATION 07/10/2024 [facility] DATE CREATED AUTHOR AUTHOR'S ORGANIZ ATION 05/26/2025 [facility] Goals (unrecognized section and content) Goals may be documented in a n alternate sectionGoals may be documented in an alternate sectionGoals may be documented in an alternate sectionGoals may be documented in an alternate sectionGoals may be documented in an alternate sectionGoals may be documented in an alternate section No data available for this section Care Teams (unrecognized sec tion and content) Team Status: Active Member Role Status Dates Dr. Huma Alves DO Family Provider Active Dr. Huma Alves DO Primary Care Provider Active Team Status: Inactive Member Role Status Dates Dr. Huma Alves DO Primary Care Provider, Referring P rovider Active Dr. Brielle Mcgowan DO Attending Provider Activ e Team Status: Inactive Member Role Status Dates Dr. Huma Alves DO Primary Care Provider, Referring P rovider Active Valencia Flowers WARDROBE ATTENDANT, WARDROBE ATTENDANT-C Attending Provider Active Team Status: Inactive Member Role Status Dates Dr. Huma Alves DO Primary Care Provider, Referring P rovider Active Dr. Catrachito Falcon MD Attending Provider Active Team Status: Inactive Member Role Status Dates Dr. Huma Alves DO Primary Care Provider Active Valencia Flowers WARDROBE ATTENDANT, WARDROBE ATTENDANT-C Attending Provider Active Team Status: Inactive Member Role Status Dates Dr. Huma Alves DO Primary Care Provider Active Dr. Higinio Guardado , DO Emergency Provider Active Team Status: Inactive Member Role Status Dates Dr. Huma Alves DO Primary Care Provider Active Dr. Catrachito Falcon MD Attending Provider, Referring Pr ovider Active Team Status: Inactive Member Role Status Dates Dr. Huma Alves DO Primary Care Provider Active Dr. Higinio Guardado DO Attending Provider, Emergency Pr ovider Active Team Status: Inactive Member Role Status Dates Dr. Huma Alves DO Primary Care Provider, Attending P rovider Active FOR RECORDS PERTAINING TO PATIENTS WHO ARE [...] BE BASED ON THE PRIMARY CLINICAL RECORDS. [facility]. provides no warranty or guarantee of the accuracy or completeness of information in this document.
== END | disposition home or self-care (01) ==
LOC: OPBI 15:36
PROVIDERS: PCP Family Medicine; Referring Provider Family Medicine; Visit Provider Family Medicine
DX: Z12.31 Encounter for screening mammogram for malignant neoplasm of breast (principal)
CPT/HCPCS: 77063; 77067

== ENCOUNTER → 2025-09-02 | Outpatient (CLI) | payer OTHER, SELFPAY ==
[2025-09-02 13:19] LABS: Ferritin 104 ng/mL (22-378); Iron 41 ug/dL (50-170); Vitamin B12 567 pg/mL (180-914); Vitamin D,25 Hydroxy 64.0 ng/mL (30-100)
== END | disposition home or self-care (01) ==
LOC: MTLAB 09:47
PROVIDERS: PCP Family Medicine; Referring Provider Family Medicine; Visit Provider Family Medicine
DX: E03.9 Hypothyroidism, unspecified (principal); E55.9 Vitamin D deficiency, unspecified; E61.1 Iron deficiency
CPT/HCPCS: 36415; 82306; 82607; 82728; 83540